=== PATIENT | female | born 2000 | race Caucasian/White ===

== ENCOUNTER 2023-10-23 11:37 | Emergency (ER) | payer SELFPAY ==
[2023-10-23] VITALS (15 sets, daily range): BP systolic 106–119; BP diastolic 60–73; PULSE 96–153; RESP 18–31; TEMP 38.3; O2SAT 96–100; BMI 29.5
--- NOTE | 2023-10-23 12:17 | ED.ABDPAIN ---
HPI - Abdominal Pain General Chief Complaint: Urogenital-Female Stated Complaint: pain when urinating, chills Time Seen by Provider: 10/23/23 11:52 Source: patient Mode of arrival: Ambulatory History of Present Illness HPI narrative: Patient 23-year-old male to female transgender uses pronouns she/her, presenting today with generally not feeling well joint pain aches and pains along with painful frequent urination. She reports painful frequent urination along with penile discharge. Reports being sexually active a few months ago no concern for STDs. Minimal abdominal pain no nausea or vomiting. She is febrile with a temperature of 101? and tachycardic. Denies any sore throat cough or other symptoms. No rashes or severe joint pain. Related Data Previous Rx's Medication Instructions Recorded cefdinir 300 mg capsule 300 mg PO Q12H #20 caps 10/23/23 Allergies Allergy/AdvReac Type Severity Reaction Status Date / Time No Known Drug Allergies Allergy Verified 10/23/23 11:40 Patient History Social History Smoking Status: Never smoker Smoking Status: Never smoker Substance Use Type: does not use Exam Initial Vital Signs Initial Vital Signs: Vital Signs Temperature 101.0 F H 10/23/23 11:41 Pulse Rate 153 H 10/23/23 11:41 Respiratory Rate 24 10/23/23 11:41 Blood Pressure 116/68 10/23/23 11:41 Pulse Oximetry 100 10/23/23 11:41 Oxygen Delivery Method Room Air 10/23/23 11:41 GENERAL: Weak alert HEENT: Head atraumatic,EOMI, pupils reactive, face symmetric, moist mucous membranes CARDIOVASCULAR: Tachycardic no murmurs RESPIRATORY: Breath sounds equal bilaterally, no wheezes rales or rhonchi. ABDOMEN: Soft, nontender. Normoactive bowel sounds all 4 quadrants. No guarding or rebound. : No CVA tenderness EXTREMITIES: Normal range of motion, no clubbing or edema. Neurovascularly intact NEUROLOGICAL: Alert and oriented x4.Normal gait and speech. SKIN: Warm, dry, no laceration, no petechiae, no rashes or lesions. No petechiae no erythema no vesicles Course Orders Ordered: ED Orders 10/23/23 11:57 EKG-12 Lead Stat 10/23/23 12:10 CBC Auto Diff [Complete Blood Count AUTO DIFF] Stat CMP [Comprehensive Metabolic Panel] Stat Lactate (Lactic Acid) Stat Troponin & CK Cardiac Panel Stat 10/23/23 12:28 Blood Culture Stat 10/23/23 12:40 Chlamydia Gonorrhea PCR -URINE Stat UA Complete [Urinalysis and Microscopic] Stat Urine Culture Stat 10/23/23 13:34 CT abdomen pelvis w con Stat Discontinued Medications Sodium Chloride (Normal Saline 0.9%) 3,129.78 mls @ 1,043.26 mls/hr 30 ml/kg infuse over 3 hr (3129.78 ml) IV NOW ONE Stop: 10/23/23 14:51 Last Infusion: 10/23/23 16:33 Dose: Infused Documented By: Admin: 10/23/23 12:33 Dose: 1,043.26 mls/hr Documented By: BRYON Ceftriaxone Sodium 1,000 mg/ (Sodium Chloride) 100 mls @ 200 mls/hr IV NOW ONE Stop: 10/23/23 11:53 Last Infusion: 10/23/23 13:30 Dose: Infused Documented By: Infusion: 10/23/23 13:02 Dose: 200 mls/hr Documented By: Admin: 10/23/23 12:30 Dose: 200 mls/hr Documented By: BRYON Ketorolac Tromethamine (Ketorolac 30 Mg/Ml Vial) 15 mg IV NOW ONE Stop: 10/23/23 11:53 Last Admin: 10/23/23 12:30 Dose: 15 mg Documented By: BRYON Ondansetron HCl (Ondansetron 4 Mg/2 Ml Inj) 4 mg IV NOW PRN PRN Reason: Nausea And Vomiting Last Admin: 10/23/23 12:30 Dose: 4 mg Documented By: BRYON Vital Signs Vital signs: Vital Signs - 8 hr 10/23/23 11:41 10/23/23 11:50 10/23/23 12:00 Temperature 101.0 F H Pulse Rate 153 H 135 H 140 H Respiratory Rate 24 Blood Pressure 116/68 Pulse Oximetry 100 100 99 Oxygen Delivery Method Room Air 10/23/23 12:01 10/23/23 12:01 10/23/23 12:30 Temperature Pulse Rate 141 H 141 H Respiratory Rate 25 H 27 H Blood Pressure 117/73 Pulse Oximetry 99 Oxygen Delivery Method 10/23/23 12:39 10/23/23 12:39 10/23/23 13:00 Temperature Pulse Rate 145 H Respiratory Rate 27 H Blood Pressure 112/69 116/69 Pulse Oximetry 100 Oxygen Delivery Method 10/23/23 13:00 10/23/23 13:30 10/23/23 13:30 Temperature Pulse Rate 134 H 115 H Respiratory Rate 27 H 18 Blood Pressure 111/66 Pulse Oximetry 97 97 Oxygen Delivery Method Room Air 10/23/23 14:00 10/23/23 14:00 10/23/23 14:26 Temperature Pulse Rate 108 H 104 H Respiratory Rate 27 H 25 H Blood Pressure 106/60 Pulse Oximetry 96 99 Oxygen Delivery Method Room Air 10/23/23 14:26 10/23/23 14:30 10/23/23 14:47 Temperature Pulse Rate 113 H Respiratory Rate Blood Pressure 109/65 114/72 Pulse Oximetry 98 Oxygen Delivery Method Room Air 10/23/23 14:47 10/23/23 15:00 10/23/23 15:00 Temperature Pulse Rate 112 H 106 H Respiratory Rate 31 H 18 Blood Pressure 115/70 Pulse Oximetry 99 99 Oxygen Delivery Method Room Air 10/23/23 15:30 10/23/23 15:30 10/23/23 16:00 Temperature Pulse Rate 97 H Respiratory Rate 25 H Blood Pressure 119/66 107/66 Pulse Oximetry 99 Oxygen Delivery Method Room Air 10/23/23 16:00 Temperature Pulse Rate 96 H Respiratory Rate 23 Blood Pressure Pulse Oximetry 99 Oxygen Delivery Method MDM - Abdominal Pain Lab Data 10/23/23 12:10 10/23/23 12:10 Labs: Lab Results 10/23/23 10/23/23 10/23/23 Range/Units 12:10 12:40 14:25 WBC 10.6 (4.5-11.0) X10^3/uL RBC 4.44 (4.0-5.2) X10^6/uL Hgb 13.5 (12.0-16.0) g/dL Hct 40.3 (36-46) % MCV 90.7 (80-100) fL MCH 30.5 (26-34) PG MCHC 33.6 (30-36) % RDW 13.0 (11.6-14.8) % Plt Count 254 (150-400) X10^3/uL Neut % (Auto) 93.2 H (50-75) % Lymph % (Auto) 4.6 L (25-40) % [place] % (Auto) 1.8 L (3-14) % Eos % (Auto) 0.1 L (2-4) % Baso % (Auto) 0.3 (0-2) % Neut # (Auto) 9900 H (8714-5055) /uL Lymph # (Auto) 500 L (5408-5358) /uL [place] # (Auto) 200 (0-900) /uL Eos # (Auto) 0 (0-450) /uL Baso # (Auto) 0 (0-100) /uL Sodium 139 (137-145) mmol/L Potassium 3.8 (3.4-5.1) mmol/L Chloride 108 H (98-107) mmol/L Carbon Dioxide 21 L (22-32) mmol/L BUN 10 (7-17) mg/dL Creatinine 0.50 L (0.52-1.04) mg/dL Estimated GFR > 60 (>60) mL/min BUN/Creatinine Ratio 20.0 (6-22) Glucose 104 H (70-100) mg/dL Lactate 2.6 H 0.8 (0.7-2.1) mmol/L Calcium 9.4 (8.4-10.2) mg/dL Total Bilirubin 0.9 (0.2-1.3) mg/dL AST 21 (14-36) IU/L ALT 23 (<35) IU/L Alkaline Phosphatase 70 (38-126) U/L Total Creatine Kinase 28 L (30-135) U/L Troponin I < 0.012 (0.01-0.034) ng/mL Total Protein 7.9 (6.3-8.2) g/dL Albumin 4.4 (3.5-5.0) g/dL Globulin 3.5 (1.7-4.1) g/dL Albumin/Globulin Ratio 1.3 (1.0-2.8) Urine Color Yellow Urine Appearance Cloudy Urine pH 6.0 (4.5-8.0) Ur Specific [place] 1.025 (1.000-1.035) Urine Protein Negative (Negative) Urine Glucose (UA) Negative (Negative) g/dL Urine Ketones Negative (NEGATIVE) Urine Occult Blood Trace-intact (Negative) Urine Nitrate Negative (Negative) Urine Bilirubin Negative (NEGATIVE) Urine Urobilinogen 0.2 (0.2) E.U./dL Ur Leukocyte Esterase 2+ H (NEGATIVE) Urine RBC 0-1/hpf (0-5/HPF) Urine WBC 30-100/hpf H (0-5/HPF) Ur Squamous Epith Cells 1-5 /hpf (0-5/HPF) Urine Bacteria Many (>30) H (None) Ur Culture Indicated? Specimen cultured Vol Urine Centrifuged 10ml (spun) Ur Chlamydia DNA (PCR) Not detected N gonorrhoeae DNA (PCR) Not detected Imaging Data CT scan - abdomen/pelvis: Radiologist's Impression: PROCEDURE: CT ABDOMEN PELVIS W CON INDICATIONS: sepsis uti TECHNIQUE: After the administration of intravenous contrast, axial sections acquired from the lung bases to the pubic symphysis. Coronal and sagittal reformats were performed. For radiation dose reduction, the following was used: automated exposure control, adjustment of mA and/or kV according to patient size. COMPARISON: None. FINDINGS: Image quality: Diagnostic. Lower Chest: No significant findings. ABDOMEN: Liver: No solid mass. Gallbladder: No radiopaque gallstones or wall thickening. Biliary ducts: No biliary dilation. Pancreas: No ductal dilation. Spleen: Borderline splenomegaly. Spleen measures 13.1 cm. Adrenal Glands: No adrenal nodules. Kidneys and Ureters: No hydronephrosis. No solid mass. No complex renal cystic lesion which requires follow up. Stomach and Bowel: Normal colonic caliber, without significant wall thickening. Peritoneum: No abnormal intraperitoneal fluid. No free air. Ventral Wall: No significant ventral hernia. Abdominal Nodes: No retroperitoneal or mesenteric adenopathy by size criteria. Vessels: Aorta and inferior vena cava are normal in size. PELVIS: Pelvic Organs: Unremarkable. Bladder: Very mild diffuse bladder wall thickening. No air within the bladder.. Pelvic Nodes: No enlarged lymph nodes. Miscellaneous: No inguinal hernias are seen. Bilateral nondistended testicles, both in the inguinal canals. Bones: No aggressive osseous abnormality. Diffuse disc bulge at L4-L5 with mild canal stenosis. IMPRESSION: 1. Mild diffuse bladder wall thickening, nonspecific. It may potentially be secondary to bacterial cystitis. 2. Bilateral non descended testicles, in the inguinal canals. 3. Borderline splenomegaly. Dictated by: Foster Melgar M.D. on 10/23/2023 at 15:00 ECG Data Attestation: I personally reviewed and interpreted this ECG as follows: Interpretation: Sinus tachycardia rate 135 MS interval 144 QRS [address] changes MDM Narrative Medical decision making narrative: MDM CC: Painful frequent urination Complicating co-morbidities: Transgender no surgeries Corroborating data: [ ] Data collected from: [ ] Medical records reviewed: No, unavailable Differential considered: Sepsis, UTI, pyelo, STD viral, Exam documented above, pertinent findings include: Tachycardic no lymphadenopathy, no significant groin pain Lab Test results independently reviewed as above. Pertinent findings: WBC 10.6, creatinine 0.5, lactate 2.6 with repeat 0.8, urinalysis many bacteria +2 leukocytes, negative chlamydia and gonorrhea Independently reviewed EKG as above sinus tachycardia Imaging studies independently reviewed: Diffuse bladder wall thickening possible bacterial cystitis bilateral nondistended testicles and inguinal canal. Patient reports that it is purely positional that testes descend upon standing Consultations: Dr. Beverly in the ED to see and evaluate patient. Recommend that patient can go home with p.o. antibiotic Treatments: Sepsis fluids Toradol Rocephin Re-evaluations: Tachycardia improved overall appears better Discussion: Patient did meet sepsis criteria however young healthy with no significant factors. Patient not having any specific testicular pain but did have some penile discharge STD test negative. Dr. Lam in an ED to see and evaluate patient. Recommends that patient can go home with cefdinir. Patient understands and agrees with this plan. She overall looks improved. She has no leukocytosis lactate has improved with IV fluids. She was given a dose of Rocephin. She is given strict return precautions Discharge Plan Departure Patient Disposition: Home Clinical Impression: Pyelonephritis Instructions: DI for Kidney Infection Activity Restrictions/Additional Instructions: *You have been diagnosed with kidney infection *What to do: At this time go home and please drink plenty of fluid may eat as tolerated. *Continue to take medications as directed Cefdinir 300 mg twice a day for 10 days Tylenol Motrin as needed for pain and fever *Follow up with your primary care provider in 2-3 days or call [phone] *Return to ER if you should have increasing confusion persistent vomiting not tolerating fluids or any new, worsening or concerning symptoms Prescriptions: New cefdinir 300 mg capsule 300 mg PO Q12H Qty: 20 0RF Stand Alone Forms: Patient Portal/API
[2023-10-23 12:25] LABS: Add Manual Diff / Slide Review NO; Basophils Absolute Auto 0 /uL (0-100); Basophils Percent Auto 0.3 % (0-2); Eosinophils Absolute Auto 0 /uL (0-450); Eosinophils Percent Auto 0.1 % (2-4); Hematocrit 40.3 % (36-46); Hemoglobin 13.5 g/dL (12.0-16.0); Lymphocytes Absolute Auto 500 /uL (1100-4500); Lymphocytes Percent Auto 4.6 % (25-40); Mean Corpuscular HGB Conc 33.6 % (30-36); Mean Corpuscular Hemoglobin 30.5 PG (26-34); Mean Corpuscular Volume 90.7 fL (80-100); Monocytes Absolute Auto 200 /uL (0-900); Monocytes Percent Auto 1.8 % (3-14); Neutrophils Absolute Auto 9900 /uL (1500-7000); Neutrophils Percent Auto 93.2 % (50-75); Platelet Count 254 X10^3/uL (150-400); Red Blood Cell Count 4.44 X10^6/uL (4.0-5.2); White Blood Cell Count 10.6 X10^3/uL (4.5-11.0)
[2023-10-23] MEDS: cefTRIAXone 1,000 MG in SODIUM CHLORIDE 0.9% 100 ML 200 MG IV (12:30)
[2023-10-23] MEDS: KETOROLAC 30 MG/ML VIAL 15 MG IV (12:30)
[2023-10-23] MEDS: ONDANSETRON 4 MG/2 ML INJ IV (12:30)
[2023-10-23] MEDS: SODIUM CHLORIDE 0.9% 3,129.78 ML 1043.26 ML IV (12:33)
[2023-10-23 12:46] LABS: Alanine Aminotransferase 23 IU/L (<35); Albumin 4.4 g/dL (3.5-5.0); Albumin Globulin Ratio 1.3 (1.0-2.8); Alkaline Phosphatase 70 U/L (38-126); Aspartate Aminotransferase 21 IU/L (14-36); Bilirubin Total 0.9 mg/dL (0.2-1.3); Blood Urea Nitrogen 10 mg/dL (7-17); Calcium 9.4 mg/dL (8.4-10.2); Carbon Dioxide 21 mmol/L (22-32); Chloride 108 mmol/L (98-107); Creatine Kinase 28 U/L (30-135); Estimated Glomerular Filt Rate > 60 mL/min (>60); Globulin 3.5 g/dL (1.7-4.1); Glucose 104 mg/dL (70-100); HEMOLYSIS < 15 (0-50); Lactate (Lactic Acid) 2.6 mmol/L (0.7-2.1); Potassium 3.8 mmol/L (3.4-5.1); Sodium 139 mmol/L (137-145); Total Protein 7.9 g/dL (6.3-8.2)
[2023-10-23 12:56] LABS: Bilirubin Urine UA NEGATIVE (NEGATIVE); Color Urine UA YELLOW; Glucose Urine UA NEGATIVE (Negative); Ketones Urine UA NEGATIVE (NEGATIVE); Leukocyte Esterase Urine UA 2+ (NEGATIVE); Nitrite Urine UA NEGATIVE (Negative); Occult Blood Urine UA TRACE-INTACT (Negative); Protein Urine UA NEGATIVE (Negative); Specific Gravity Urine UA 1.025 (1.000-1.035); Urobilinogen Urine UA 0.2 E.U./dL (0.2)
[2023-10-23 12:56] LABS: Troponin I < 0.012 ng/mL (0.01-0.034)
--- NOTE | 2023-10-23 13:08 | PC.NURSE ---
PT reports frequent/constant UTI's, confusion, dizziness, lightheaded, generalized pain, white-thick vaginal discharge, burning with urination which worsened the past month. Pt states she get's UTI medications, macrobid online to take when I have symptoms. Pt educated on antibiotic usage. PT laying in bed with quiet music playing on her phone.
[2023-10-23 13:09] LABS: Appearance Urine UA CLOUDY
[2023-10-23 13:11] LABS: Bacteria Urine Many (>30); Culture Indicated Urine Specimen Cultured; RBC Urine 0-1/HPF (0-5/HPF); Squamous Epithelial Cell Urine 1-5 /HPF (0-5/HPF); Urine Volume 10mL (spun); WBC Urine 30-100/HPF (0-5/HPF)
--- NOTE | 2023-10-23 13:34 | DI.CT.S_ITS ---
PROCEDURE: CT ABDOMEN PELVIS W CON INDICATIONS: sepsis uti TECHNIQUE: After the administration of intravenous contrast, axial sections acquired from the lung bases to the pubic symphysis. Coronal and sagittal reformats were performed. For radiation dose reduction, the following was used: automated exposure control, adjustment of mA and/or kV according to patient size. COMPARISON: None. FINDINGS: Image quality: Diagnostic. Lower Chest: No significant findings. ABDOMEN: Liver: No solid mass. Gallbladder: No radiopaque gallstones or wall thickening. Biliary ducts: No biliary dilation. Pancreas: No ductal dilation. Spleen: Borderline splenomegaly. Spleen measures 13.1 cm. Adrenal Glands: No adrenal nodules. Kidneys and Ureters: No hydronephrosis. No solid mass. No complex renal cystic lesion which requires follow up. Stomach and Bowel: Normal colonic caliber, without significant wall thickening. Peritoneum: No abnormal intraperitoneal fluid. No free air. Ventral Wall: No significant ventral hernia. Abdominal Nodes: No retroperitoneal or mesenteric adenopathy by size criteria. Vessels: Aorta and inferior vena cava are normal in size. PELVIS: Pelvic Organs: Unremarkable. Bladder: Very mild diffuse bladder wall thickening. No air within the bladder.. Pelvic Nodes: No enlarged lymph nodes. Miscellaneous: No inguinal hernias are seen. Bilateral nondistended testicles, both in the inguinal canals. Bones: No aggressive osseous abnormality. Diffuse disc bulge at L4-L5 with mild canal stenosis. IMPRESSION: 1. Mild diffuse bladder wall thickening, nonspecific. It may potentially be secondary to bacterial cystitis. 2. Bilateral non descended testicles, in the inguinal canals. 3. Borderline splenomegaly. Dictated by: Foster Melgar M.D. on 10/23/2023 at 15:00 Approved by: Foster Melgar M.D. on 10/23/2023 at 15:04
[2023-10-23 13:57] LABS: Reflexed Lactate in 2 Hours Y
[2023-10-23 14:21] LABS: Urine N gonorrhoeae NOT DETECTED
[2023-10-23 14:24] LABS: Urine Chlamydia NOT DETECTED
[2023-10-23 14:50] LABS: Lactate 2HR (Lactic Acid Rflx) 0.8 mmol/L (0.7-2.1)
--- NOTE | 2023-10-23 16:00 | PM.CN ---
History of Present Illness Consult details Date Patient Seen: 10/23/23 Time Patient Seen: 16:00 Chief complaint: pain when urinating, chills Reason for consult: Pyelonephritis Narrative: 23 F who presented with dysuria, urinary frequency and some R flank pain since this AM. Has had on / off symptoms of burning and frequency and previous UTIs. No recent sexual activity in the past few months, no concerns for STIs that she is aware of. Denies groin swelling, leg swelling. Subjective fever this morning. Some nausea but no vomiting. Feels improved after ER treatments. Did have some pyuria, improved with urination in the ER. Vitals with mild tachycardia, improved with fluids. Fever 101. UA positive and reflexed for culture. I discussed the risks and benefits of admission or discharge home given improving vital signs and improvement clinically. After discussion, patient elected for discharge home from the ER. Meds Home Medications and Allergies Home Medications Medication Instructions Recorded Confirmed Type cefdinir 300 mg capsule 300 mg PO Q12H #20 caps 10/23/23 Rx Allergies Allergy/AdvReac Type Severity Reaction Status Date / Time No Known Drug Allergies Allergy Verified 10/23/23 11:40 Review of Systems Review of Systems Narrative: All other systems reviewed with the patient and are negative unless otherwise stated. Exam Vital Signs (past 8 hours): - 10/23/23 11:41 10/23/23 11:50 10/23/23 12:00 Temperature 101.0 F H Pulse Rate 153 H 135 H 140 H Respiratory Rate 24 Blood Pressure 116/68 Pulse Oximetry 100 100 99 Oxygen Delivery Method Room Air 10/23/23 12:01 10/23/23 12:01 10/23/23 12:30 Temperature Pulse Rate 141 H 141 H Respiratory Rate 25 H 27 H Blood Pressure 117/73 Pulse Oximetry 99 Oxygen Delivery Method 10/23/23 12:39 10/23/23 12:39 10/23/23 13:00 Temperature Pulse Rate 145 H Respiratory Rate 27 H Blood Pressure 112/69 116/69 Pulse Oximetry 100 Oxygen Delivery Method 10/23/23 13:00 10/23/23 13:30 10/23/23 13:30 Temperature Pulse Rate 134 H 115 H Respiratory Rate 27 H 18 Blood Pressure 111/66 Pulse Oximetry 97 97 Oxygen Delivery Method Room Air 10/23/23 14:00 10/23/23 14:00 10/23/23 14:26 Temperature Pulse Rate 108 H 104 H Respiratory Rate 27 H 25 H Blood Pressure 106/60 Pulse Oximetry 96 99 Oxygen Delivery Method Room Air 10/23/23 14:26 10/23/23 14:30 10/23/23 14:47 Temperature Pulse Rate 113 H Respiratory Rate Blood Pressure 109/65 114/72 Pulse Oximetry 98 Oxygen Delivery Method Room Air 10/23/23 14:47 10/23/23 15:00 10/23/23 15:00 Temperature Pulse Rate 112 H 106 H Respiratory Rate 31 H 18 Blood Pressure 115/70 Pulse Oximetry 99 99 Oxygen Delivery Method Room Air 10/23/23 15:30 10/23/23 15:30 Temperature Pulse Rate 97 H Respiratory Rate 25 H Blood Pressure 119/66 Pulse Oximetry 99 Oxygen Delivery Method Room Air Oxygen Delivery Method Room Air Narrative Exam Narrative: Gen: WDWN female, no acute distress CV: RRR, slight tachycardia Ext: no edema. Objective Labs 10/23/23 12:10 10/23/23 12:10 Labs: Laboratory Results - last 24 hr 10/23/23 10/23/23 10/23/23 12:10 12:40 14:25 WBC 10.6 RBC 4.44 Hgb 13.5 Hct 40.3 MCV 90.7 MCH 30.5 MCHC 33.6 RDW 13.0 Plt Count 254 Neut % (Auto) 93.2 H Lymph % (Auto) 4.6 L [place] % (Auto) 1.8 L Eos % (Auto) 0.1 L Baso % (Auto) 0.3 Neut # (Auto) 9900 H Lymph # (Auto) 500 L [place] # (Auto) 200 Eos # (Auto) 0 Baso # (Auto) 0 Sodium 139 Potassium 3.8 Chloride 108 H Carbon Dioxide 21 L BUN 10 Creatinine 0.50 L Estimated GFR > 60 BUN/Creatinine Ratio 20.0 Glucose 104 H Lactate 2.6 H 0.8 Calcium 9.4 Total Bilirubin 0.9 AST 21 ALT 23 Alkaline Phosphatase 70 Total Creatine Kinase 28 L Troponin I < 0.012 Total Protein 7.9 Albumin 4.4 Globulin 3.5 Albumin/Globulin Ratio 1.3 Urine Color Yellow Urine Appearance Cloudy Urine pH 6.0 Ur Specific [place] 1.025 Urine Protein Negative Urine Glucose (UA) Negative Urine Ketones Negative Urine Occult Blood Trace-intact Urine Nitrate Negative Urine Bilirubin Negative Urine Urobilinogen 0.2 Ur Leukocyte Esterase 2+ H Urine RBC 0-1/hpf Urine WBC 30-100/hpf H Ur Squamous Epith Cells 1-5 /hpf Urine Bacteria Many (>30) H Ur Culture Indicated? Specimen cultured Vol Urine Centrifuged 10ml (spun) Ur Chlamydia DNA (PCR) Not detected N gonorrhoeae DNA (PCR) Not detected PFSH Tobacco & Substance Use Smoking Status: Never smoker Assessment & Plan Assessment & Plan narrative: 1. Acute cystitis, possible R pyelonephritis - no evidence of end organ damage does have + SIRS criteria. given improving tachycardia and clinical symptoms, patient is safe for discharge home. Discussed risks and benefits of continued observation in the hospital or discharge home, patient elected for discharge home. - Urine GC is negative. - Recommend cefdinir for 10 days for presumptive pyelonephritis. Try to follow up cultures to check if any resistance. - encouraged primary care follow up, patient gets majority of care at [facility]. 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 Discussed possible risks of cryptorchidism, recommended outpatient follow up. - with waxing and waning symptoms, if there is a recurrence after this episode consider fluoroquinolone for treatment of possible prostatitis, though no evidence currently. Code: Full Dispo: discussed risks and benefits of discharge home or continued observation. Patient elected home. Additional history obtained from the ER provider. Reviewed patient's imaging, labs, and documentation personally. I have utilized all available immediate resources to obtain, update, or review the patient's current medications.
[2023-10-24 08:55] LABS: Acinetobacter calcoa-baumannii Not Detected (Not Detect); Bacteroides fragilis Not Detected (Not Detect); Candida albicans Not Detected (Not Detect); Candida auris Not Detected (Not Detect); Candida glabrata Not Detected (Not Detect); Candida krusei Not Detected (Not Detect); Candida parapsilosis Not Detected (Not Detect); Candida tropicalis Not Detected (Not Detect); Cryptococcus neoformans/gatti Not Detected (Not Detect); Enterobacter cloacae complex Not Detected (Not Detect); Enterobacterales Not Detected (Not Detect); Enterococcus faecalis Not Detected (Not Detect); Enterococcus faecium Not Detected (Not Detect); Haemophilus influenzae Not Detected (Not Detect); Klebsiella aerogenes Not Detected (Not Detect); Listeria monocytogenes Not Detected (Not Detect); Neisseria meningitidis Not Detected (Not Detect); Proteus species Not Detected (Not Detect); Pseudomonas aeruginosa Not Detected (Not Detect); Salmonella species Not Detected (Not Detect); Serratia marcescens Not Detected (Not Detect); Staphylococcus epidermidis Not Detected (Not Detect); Staphylococcus lugdunensis Not Detected (Not Detect); Staphylococcus species Not Detected (Not Detect); Stenotrophomonas maltophilia Not Detected (Not Detect); Streptococcus agalactiae (Gr B Detected (Not Detect); Streptococcus pneumonia Not Detected (Not Detect); Streptococcus pyogenes (Gr A) Not Detected (Not Detect); Streptococcus species Detected (Not Detect)
--- NOTE | 2023-10-24 10:16 | ED_ITS ---
HPI - General Adult General Chief complaint: Urogenital-Female Stated complaint: pain when urinating, chills Time Seen by Provider: 10/23/23 11:52 Source: patient Mode of arrival: Ambulatory History of Present Illness HPI narrative: 23-year-old male to female transgender uses pronouns she/her asked to return after 2 positive blood cultures patient was discharged home yesterday on cefdinir for pyelonephritis with frequent painful urination along with penile discharge. Patient was febrile yesterday with a temperature of 101? and tachycardic, today is afebrile no longer tachycardic states they felt a little bit warm overnight. No abdominal back or flank pain, still has some dysuria, no nausea or vomiting, no chest pain or shortness of breath, no cold or cough symptoms. No issues with bowel movements otherwise. No rash or skin changes. They have been taking cefdinir as prescribed since discharge. Patient has not had any prior surgeries. Is on spironolactone and additional medication normally. No known drug allergies. No tobacco, no IV drugs. Related Data Previous Rx's Medication Instructions Recorded cefdinir 300 mg capsule 300 mg PO Q12H #20 caps 10/23/23 Allergies Allergy/AdvReac Type Severity Reaction Status Date / Time No Known Drug Allergies Allergy Verified 10/24/23 10:18 Review of Systems Review of Systems ROS Unobtainable: All systems reviewed & are unremarkable except as noted in HPI and below Patient History Social History Smoking Status: Never smoker Smoking Status: Never smoker Substance Use Type: does not use Exam Narrative Exam Narrative: GENERAL: Alert and oriented x three, well-appearing without any distress. HEENT: Head normocephalic, atraumatic, EOMI, pupils reactive, face symmetric, moist mucous membranes NECK: Supple, full range of motion CARDIOVASCULAR: Regular rate and rhythm without murmurs, rubs or gallops. RESPIRATORY: Breath sounds equal bilaterally, no wheezes rales or rhonchi. ABDOMEN: Soft, nontender. Normoactive bowel sounds all 4 quadrants. No guarding or rebound, rigidity, no mass : No CVA tenderness EXTREMITIES: Normal range of motion, no clubbing or edema. Neurovascularly intact NEUROLOGICAL: Cranial nerves II through XII grossly intact. Moving all extremities SKIN: Warm, dry, no petechiae, no rashes or lesions. Initial Vital Signs Initial Vital Signs: Vital Signs Temperature 101.0 F H 10/23/23 11:41 Pulse Rate 153 H 10/23/23 11:41 Respiratory Rate 24 10/23/23 11:41 Blood Pressure 116/68 10/23/23 11:41 Pulse Oximetry 100 10/23/23 11:41 Oxygen Delivery Method Room Air 10/23/23 11:41 Course Orders Ordered: Discontinued Medications Sodium Chloride (Normal Saline 0.9%) 3,129.78 mls @ 1,043.26 mls/hr 30 ml/kg infuse over 3 hr (3129.78 ml) IV NOW ONE Stop: 10/23/23 14:51 Last Infusion: 10/23/23 16:33 Dose: Infused Documented By: Admin: 10/23/23 12:33 Dose: 1,043.26 mls/hr Documented By: BRYON Ceftriaxone Sodium 1,000 mg/ (Sodium Chloride) 100 mls @ 200 mls/hr IV NOW ONE Stop: 10/23/23 11:53 Last Infusion: 10/23/23 13:30 Dose: Infused Documented By: Infusion: 10/23/23 13:02 Dose: 200 mls/hr Documented By: Admin: 10/23/23 12:30 Dose: 200 mls/hr Documented By: BRYON Ketorolac Tromethamine (Ketorolac 30 Mg/Ml Vial) 15 mg IV NOW ONE Stop: 10/23/23 11:53 Last Admin: 10/23/23 12:30 Dose: 15 mg Documented By: BRYON Ondansetron HCl (Ondansetron 4 Mg/2 Ml Inj) 4 mg IV NOW PRN PRN Reason: Nausea And Vomiting Last Admin: 10/23/23 12:30 Dose: 4 mg Documented By: BRYON Medical Decision Making Lab Data 10/24/23 10:20 10/24/23 10:20 Labs: Lab Results 10/23/23 10/23/23 10/23/23 Range/Units 12:10 12:40 14:25 WBC 10.6 (4.5-11.0) X10^3/uL RBC 4.44 (4.0-5.2) X10^6/uL Hgb 13.5 (12.0-16.0) g/dL Hct 40.3 (36-46) % MCV 90.7 (80-100) fL MCH 30.5 (26-34) PG MCHC 33.6 (30-36) % RDW 13.0 (11.6-14.8) % Plt Count 254 (150-400) X10^3/uL Neut % (Auto) 93.2 H (50-75) % Lymph % (Auto) 4.6 L (25-40) % [place] % (Auto) 1.8 L (3-14) % Eos % (Auto) 0.1 L (2-4) % Baso % (Auto) 0.3 (0-2) % Neut # (Auto) 9900 H (5176-3950) /uL Lymph # (Auto) 500 L (3912-9749) /uL [place] # (Auto) 200 (0-900) /uL Eos # (Auto) 0 (0-450) /uL Baso # (Auto) 0 (0-100) /uL Sodium 139 (137-145) mmol/L Potassium 3.8 (3.4-5.1) mmol/L Chloride 108 H (98-107) mmol/L Carbon Dioxide 21 L (22-32) mmol/L BUN 10 (7-17) mg/dL Creatinine 0.50 L (0.52-1.04) mg/dL Estimated GFR > 60 (>60) mL/min BUN/Creatinine Ratio 20.0 (6-22) Glucose 104 H (70-100) mg/dL Lactate 2.6 H 0.8 (0.7-2.1) mmol/L Calcium 9.4 (8.4-10.2) mg/dL Total Bilirubin 0.9 (0.2-1.3) mg/dL AST 21 (14-36) IU/L ALT 23 (<35) IU/L Alkaline Phosphatase 70 (38-126) U/L Total Creatine Kinase 28 L (30-135) U/L Troponin I < 0.012 (0.01-0.034) ng/mL Total Protein 7.9 (6.3-8.2) g/dL Albumin 4.4 (3.5-5.0) g/dL Globulin 3.5 (1.7-4.1) g/dL Albumin/Globulin Ratio 1.3 (1.0-2.8) Lipase (23-300) U/L Procalcitonin (<0.5) ng/mL Urine Color Yellow Urine Appearance Cloudy Urine pH 6.0 (4.5-8.0) Ur Specific [place] 1.025 (1.000-1.035) Urine Protein Negative (Negative) Urine Glucose (UA) Negative (Negative) g/dL Urine Ketones Negative (NEGATIVE) Urine Occult Blood Trace-intact (Negative) Urine Nitrate Negative (Negative) Urine Bilirubin Negative (NEGATIVE) Urine Urobilinogen 0.2 (0.2) E.U./dL Ur Leukocyte Esterase 2+ H (NEGATIVE) Urine RBC 0-1/hpf (0-5/HPF) Urine WBC 30-100/hpf H (0-5/HPF) Ur Squamous Epith Cells 1-5 /hpf (0-5/HPF) Urine Bacteria Many (>30) H (None) Ur Culture Indicated? Specimen cultured Vol Urine Centrifuged 10ml (spun) A.calcoaceticus-baumannii cmplx PCR Not detected (Not Detect) Bacteroides fragilis Not detected (Not Detect) Sara albicans (PCR) Not detected (Not Detect) Sara auris (PCR) Not detected (Not Detect) C. glabrata (PCR) Not detected (Not Detect) C. krusei (PCR) Not detected (Not Detect) C. parapsilosis (PCR) Not detected (Not Detect) C. tropicalis (PCR) Not detected (Not Detect) Ur Chlamydia DNA (PCR) Not detected C. neoform/gattii (PCR) Not detected (Not Detect) Enterobacterales (PCR) Not detected (Not Detect) E. cloacae complex PCR Not detected (Not Detect) Enterococc faecalis PCR Not detected (Not Detect) Enterococc faecium PCR Not detected (Not Detect) E. coli (PCR) Not detected (Not Detect) H. influenzae (PCR) Not detected (Not Detect) Klebsiella aerogenes (PCR) Not detected (Not Detect) Klebsiella oxytoca PCR Not detected (Not Detect) Klebsiella pneumoniae Not detected (Not Detect) List. monocytogenes PCR Not detected (Not Detect) N. meningitidis (PCR) Not detected (Not Detect) Proteus species (PCR) Not detected (Not Detect) Salmonella spp. (PCR) Not detected (Not Detect) Serratia marcescens PCR Not detected (Not Detect) Staphylococcus sp PCR Not detected (Not Detect) Staph aureus (PCR) Not detected (Not Detect) mecA/C & MREJ Resist Gene Not applicable (Not Detect) mecA/C-Methicil Resis Gene Not applicable (Not Detect) mcr-1 Colistin Res Gene PCR Not applicable (Not Detect) Staph epidermidis (PCR) Not detected (Not Detect) Staph lugdunensis PCR Not detected (Not Detect) S. maltophilia (PCR) Not detected (Not Detect) Streptococcus sp PCR Detected (Not Detect) Group A Strep (PCR) Not detected (Not Detect) Strep agalactiae (PCR) Detected (Not Detect) Strep pneumoniae (PCR) Not detected (Not Detect) P. aeruginosa (PCR) Not detected (Not Detect) Sheng/B-Vanco Res Genes Not applicable (Not Detect) blaIMP Car res Gene PCR Not applicable (Not Detect) KPC-Carbap Res Gene PCR Not applicable (Not Detect) blaNDM Car Res Gene PCR Not applicable (Not Detect) OXA-48 Carbapenem Resis Gene (PCR) Not applicable (Not Detect) blaVIM Car Res Gene PCR Not applicable (Not Detect) CTX-M Gene Resistance (PCR) Not applicable (Not Detect) N gonorrhoeae DNA (PCR) Not detected 10/24/23 10/24/23 Range/Units 10:20 12:40 WBC 9.5 (4.5-11.0) X10^3/uL RBC 4.50 (4.0-5.2) X10^6/uL Hgb 13.8 (12.0-16.0) g/dL Hct 40.8 (36-46) % MCV 90.7 (80-100) fL MCH 30.8 (26-34) PG MCHC 33.9 (30-36) % RDW 13.0 (11.6-14.8) % Plt Count 279 (150-400) X10^3/uL Neut % (Auto) 61.7 D (50-75) % Lymph % (Auto) 24.3 L (25-40) % [place] % (Auto) 13.3 (3-14) % Eos % (Auto) 0.5 L (2-4) % Baso % (Auto) 0.2 (0-2) % Neut # (Auto) 5900 (0721-4560) /uL Lymph # (Auto) 2300 (1703-8166) /uL [place] # (Auto) 1300 H (0-900) /uL Eos # (Auto) 0 (0-450) /uL Baso # (Auto) 0 (0-100) /uL Sodium 141 (137-145) mmol/L Potassium 3.6 (3.4-5.1) mmol/L Chloride 106 (98-107) mmol/L Carbon Dioxide 25 (22-32) mmol/L BUN 7 (7-17) mg/dL Creatinine 0.46 L (0.52-1.04) mg/dL Estimated GFR > 60 (>60) mL/min BUN/Creatinine Ratio 15.2 (6-22) Glucose 112 H (70-100) mg/dL Lactate 2.4 H 0.7 (0.7-2.1) mmol/L Calcium 9.8 (8.4-10.2) mg/dL Total Bilirubin 1.0 (0.2-1.3) mg/dL AST 20 (14-36) IU/L ALT 23 (<35) IU/L Alkaline Phosphatase 67 (38-126) U/L Total Creatine Kinase (30-135) U/L Troponin I (0.01-0.034) ng/mL Total Protein 8.2 (6.3-8.2) g/dL Albumin 4.9 (3.5-5.0) g/dL Globulin 3.3 (1.7-4.1) g/dL Albumin/Globulin Ratio 1.5 (1.0-2.8) Lipase 51 (23-300) U/L Procalcitonin 6.75 H (<0.5) ng/mL Urine Color Urine Appearance Urine pH (4.5-8.0) Ur Specific [place] (1.000-1.035) Urine Protein (Negative) Urine Glucose (UA) (Negative) g/dL Urine Ketones (NEGATIVE) Urine Occult Blood (Negative) Urine Nitrate (Negative) Urine Bilirubin (NEGATIVE) Urine Urobilinogen (0.2) E.U./dL Ur Leukocyte Esterase (NEGATIVE) Urine RBC (0-5/HPF) Urine WBC (0-5/HPF) Ur Squamous Epith Cells (0-5/HPF) Urine Bacteria (None) Ur Culture Indicated? Vol Urine Centrifuged A.calcoaceticus-baumannii cmplx PCR (Not Detect) Bacteroides fragilis (Not Detect) Sara albicans (PCR) (Not Detect) Sara auris (PCR) (Not Detect) C. glabrata (PCR) (Not Detect) C. krusei (PCR) (Not Detect) C. parapsilosis (PCR) (Not Detect) C. tropicalis (PCR) (Not Detect) Ur Chlamydia DNA (PCR) C. neoform/gattii (PCR) (Not Detect) Enterobacterales (PCR) (Not Detect) E. cloacae complex PCR (Not Detect) Enterococc faecalis PCR (Not Detect) Enterococc faecium PCR (Not Detect) E. coli (PCR) (Not Detect) H. influenzae (PCR) (Not Detect) Klebsiella aerogenes (PCR) (Not Detect) Klebsiella oxytoca PCR (Not Detect) Klebsiella pneumoniae (Not Detect) List. monocytogenes PCR (Not Detect) N. meningitidis (PCR) (Not Detect) Proteus species (PCR) (Not Detect) Salmonella spp. (PCR) (Not Detect) Serratia marcescens PCR (Not Detect) Staphylococcus sp PCR (Not Detect) Staph aureus (PCR) (Not Detect) mecA/C & MREJ Resist Gene (Not Detect) mecA/C-Methicil Resis Gene (Not Detect) mcr-1 Colistin Res Gene PCR (Not Detect) Staph epidermidis (PCR) (Not Detect) Staph lugdunensis PCR (Not Detect) S. maltophilia (PCR) (Not Detect) Streptococcus sp PCR (Not Detect) Group A Strep (PCR) (Not Detect) Strep agalactiae (PCR) (Not Detect) Strep pneumoniae (PCR) (Not Detect) P. aeruginosa (PCR) (Not Detect) Sheng/B-Vanco Res Genes (Not Detect) blaIMP Car res Gene PCR (Not Detect) KPC-Carbap Res Gene PCR (Not Detect) blaNDM Car Res Gene PCR (Not Detect) OXA-48 Carbapenem Resis Gene (PCR) (Not Detect) blaVIM Car Res Gene PCR (Not Detect) CTX-M Gene Resistance (PCR) (Not Detect) N gonorrhoeae DNA (PCR) MDM Narrative Medical decision making narrative: 23-year-old male to female transgender individual who represents after being contacted for to positive blood cultures, positive urine yesterday with presumed pyelonephritis. Patient feels much improved heart rate today. Discharge Plan Departure Patient Disposition: Home Clinical Impression: Pyelonephritis Instructions: DI for Kidney Infection Activity Restrictions/Additional Instructions: *You have been diagnosed with kidney infection *What to do: At this time go home and please drink plenty of fluid may eat as tolerated. *Continue to take medications as directed Cefdinir 300 mg twice a day for 10 days Tylenol Motrin as needed for pain and fever *Follow up with your primary care provider in 2-3 days or call [phone] *Return to ER if you should have increasing confusion persistent vomiting not tolerating fluids or any new, worsening or concerning symptoms Prescriptions: New cefdinir 300 mg capsule 300 mg PO Q12H Qty: 20 0RF Stand Alone Forms: Patient Portal/API
[2023-10-24 10:35] LABS: Add Manual Diff / Slide Review NO; Basophils Absolute Auto 0 /uL (0-100); Basophils Percent Auto 0.2 % (0-2); Eosinophils Absolute Auto 0 /uL (0-450); Eosinophils Percent Auto 0.5 % (2-4); Hematocrit 40.8 % (36-46); Hemoglobin 13.8 g/dL (12.0-16.0); Lymphocytes Absolute Auto 2300 /uL (1100-4500); Lymphocytes Percent Auto 24.3 % (25-40); Mean Corpuscular HGB Conc 33.9 % (30-36); Mean Corpuscular Hemoglobin 30.8 PG (26-34); Mean Corpuscular Volume 90.7 fL (80-100); Monocytes Absolute Auto 1300 /uL (0-900); Monocytes Percent Auto 13.3 % (3-14); Neutrophils Absolute Auto 5900 /uL (1500-7000); Neutrophils Percent Auto 61.7 % (50-75); Platelet Count 279 X10^3/uL (150-400); White Blood Cell Count 9.5 X10^3/uL (4.5-11.0)
[2023-10-24 10:46] LABS: Alanine Aminotransferase 23 IU/L (<35); Albumin 4.9 g/dL (3.5-5.0); Albumin Globulin Ratio 1.5 (1.0-2.8); Alkaline Phosphatase 67 U/L (38-126); Aspartate Aminotransferase 20 IU/L (14-36); BUN Creatinine Ratio 15.2 (6-22); Blood Urea Nitrogen 7 mg/dL (7-17); Calcium 9.8 mg/dL (8.4-10.2); Carbon Dioxide 25 mmol/L (22-32); Chloride 106 mmol/L (98-107); Estimated Glomerular Filt Rate > 60 mL/min (>60); Globulin 3.3 g/dL (1.7-4.1); Glucose 112 mg/dL (70-100); HEMOLYSIS < 15 (0-50); Lactate (Lactic Acid) 2.4 mmol/L (0.7-2.1); Lipase 51 U/L (23-300); Potassium 3.6 mmol/L (3.4-5.1); Sodium 141 mmol/L (137-145); Total Protein 8.2 g/dL (6.3-8.2)
[2023-10-24 11:02] LABS: Procalcitonin 6.75 ng/mL (<0.5)
[2023-10-24 12:06] LABS: Reflexed Lactate in 2 Hours Y
[2023-10-24 12:59] LABS: Lactate 2HR (Lactic Acid Rflx) 0.7 mmol/L (0.7-2.1)
== END 2023-10-23 16:34 | disposition home or self-care (01) ==
PROVIDERS: Emergency Medicine; Emergency Provider Emergency Medicine
DX: N12 Tubulo-interstitial nephritis, not specified as acute or chronic (principal); R00.0 Tachycardia, unspecified
CPT/HCPCS: 36415; 74177; 80053; 81001; 82550; 83605; 83690; 84145; 84484; 85025; 87040; 87077; 87086; 87147; 87154; 87186; 87205; 87491; 87591; 93005; 93010; 96365; 96375; 99284; J0696; J1885; J2405; Q9967

== ENCOUNTER 2023-10-24 10:11 | Emergency (ER) | payer SELFPAY ==
[2023-10-24] VITALS (11 sets, daily range): BP systolic 109–138; BP diastolic 70–92; PULSE 67–90; RESP 18; TEMP 36.9; O2SAT 98–100; BMI 29.5
--- NOTE | 2023-10-24 10:32 | ED.RECABL ---
HPI - Recheck/Abnormal Lab/Rx General Chief Complaint: Recheck/Abnormal Lab/Rx Stated Complaint: asked to come back in for lab recheck Time Seen by Provider: 10/24/23 10:13 Source: patient Mode of arrival: Ambulatory History of Present Illness HPI narrative: HPI narrative: 23-year-old male to female transgender uses pronouns she/her asked to return after 2 positive blood cultures patient was discharged home yesterday on cefdinir for pyelonephritis with frequent painful urination along with penile discharge. Patient was febrile yesterday with a temperature of 101? and tachycardic, today is afebrile no longer tachycardic states they felt a little bit warm overnight. No abdominal back or flank pain, still has some dysuria, no nausea or vomiting, no chest pain or shortness of breath, no cold or cough symptoms. No issues with bowel movements otherwise. No rash or skin changes. They have been taking cefdinir as prescribed since discharge. Patient has not had any prior surgeries. Is on spironolactone and additional medication normally. No known drug allergies. No tobacco, no IV drugs. Related Data Previous Rx's Medication Instructions Recorded cefdinir 300 mg capsule 300 mg PO Q12H #20 caps 10/23/23 Allergies Allergy/AdvReac Type Severity Reaction Status Date / Time No Known Drug Allergies Allergy Verified 10/24/23 10:18 Review of Systems Review of Systems ROS Unobtainable: All systems reviewed & are unremarkable except as noted in HPI and below Patient History Social History Smoking Status: Never smoker Smoking Status: Never smoker Substance Use Type: does not use Exam Narrative Exam Narrative: Exam Narrative: GENERAL: Alert and oriented x three, well-appearing without any distress. HEENT: Head normocephalic, atraumatic, EOMI, pupils reactive, face symmetric, moist mucous membranes NECK: Supple, full range of motion CARDIOVASCULAR: Regular rate and rhythm without murmurs, rubs or gallops. RESPIRATORY: Breath sounds equal bilaterally, no wheezes rales or rhonchi. ABDOMEN: Soft, nontender. Normoactive bowel sounds all 4 quadrants. No guarding or rebound, rigidity, no mass : No CVA tenderness EXTREMITIES: Normal range of motion, no clubbing or edema. Neurovascularly intact NEUROLOGICAL: Cranial nerves II through XII grossly intact. Moving all extremities SKIN: Warm, dry, no petechiae, no rashes or lesions. Initial Vital Signs Initial Vital Signs: Vital Signs Pulse Rate 87 10/24/23 10:16 Blood Pressure 134/92 H 10/24/23 10:16 Pulse Oximetry 100 10/24/23 10:16 Course Orders Ordered: Discontinued Medications Sodium Chloride (Normal Saline 0.9%) 1,000 mls @ 1,000 mls/hr IV BOLUS ONE Stop: 10/24/23 12:01 Last Infusion: 10/24/23 12:45 Dose: Infused Documented By: Admin: 10/24/23 11:29 Dose: 1,000 mls/hr Documented By: BRYON Vital Signs Vital signs: Vital Signs - 8 hr 10/24/23 10:16 10/24/23 10:16 10/24/23 10:18 Temperature 98.5 F Pulse Rate 87 87 Respiratory Rate 18 Blood Pressure 134/92 H 134/92 H Pulse Oximetry 100 98 Oxygen Delivery Method Room Air 10/24/23 10:28 10/24/23 10:28 10/24/23 10:30 Temperature Pulse Rate 90 86 Respiratory Rate Blood Pressure 138/82 Pulse Oximetry 99 99 Oxygen Delivery Method 10/24/23 11:00 10/24/23 11:30 10/24/23 11:30 Temperature Pulse Rate 79 78 Respiratory Rate Blood Pressure 126/70 Pulse Oximetry 98 99 Oxygen Delivery Method 10/24/23 12:00 10/24/23 12:30 10/24/23 12:42 Temperature Pulse Rate 71 71 Respiratory Rate Blood Pressure 118/77 Pulse Oximetry 100 100 Oxygen Delivery Method 10/24/23 12:42 10/24/23 12:45 10/24/23 12:45 Temperature Pulse Rate 74 76 Respiratory Rate Blood Pressure 111/78 Pulse Oximetry 99 100 Oxygen Delivery Method 10/24/23 13:00 10/24/23 13:00 Temperature Pulse Rate 67 Respiratory Rate Blood Pressure 109/73 Pulse Oximetry 99 Oxygen Delivery Method MDM - Recheck/Abnormal Lab/Rx MDM Narrative Medical decision making narrative: Patient return for recheck after 2/2 positive blood cultures, PCR positive for strep agalactatiae. Urine culture is pending but also positive for Streptococcus group B. Heart rate today is in the 80s blood pressure is 1 30s over 92 afebrile, does not appear toxic or septic currently. Patient is feeling better compared to yesterday. They have cefdinir starting yesterday and today. Patient's labs patient has a normal white count 9.5 was 10.6 on the 12th, hemoglobin 13, platelets are 279, no predominance of neutrophils today did the 12th. Chemistry shows normal chemistry normal electrolytes replenish lactate was 2.4 repeat 0.7 LFTs are otherwise negative procalcitonin is 6.75 patient does not have a prior for comparison. After discussion with the patient they would like to return home continue on oral antibiotics for 10 days total. Patient would like for discharge home. With normal vitals and otherwise fairly normal labs patient is tolerating well and feels improved felt appropriate for discharge home cultures were repeated today and are currently pending. Discharge Plan Departure Patient Disposition: Home Clinical Impression: Pyelonephritis, Bacteremia Activity Restrictions/Additional Instructions: Your blood cultures and urine culture are positive for strep which shows bacteremia. Your labs today appear improved from yesterday, although there are still signs of infection. Your blood cultures were repeated today these typically take 48-72 hours to result if positive you would be re-contacted. Please continue your antibiotics until completed for a total of 10 days. If you have recurrent fevers if you are feeling worse in any time new abdominal back or flank pain, increasing difficulty with urination or painful urination, nausea or vomiting or other new or concerning changes please return. Prescriptions: No Action cefdinir 300 mg capsule 300 mg PO Q12H Qty: 20 0RF Referrals: Miscellaneous,DoctorMD [Primary Care Provider] - Stand Alone Forms: Patient Portal/API
[2023-10-24] MEDS: SODIUM CHLORIDE 0.9% 1,000 ML 1000 ML IV (11:29)
== END 2023-10-24 13:17 | disposition home or self-care (01) ==
PROVIDERS: Emergency Provider Emergency Medicine
DX: N12 Tubulo-interstitial nephritis, not specified as acute or chronic (principal); R78.81 Bacteremia
CPT/HCPCS: 36415; 96360; 99284

== ENCOUNTER 2023-11-15 15:43 | Observation (INO) | payer OTHER, MEDICAID, SELFPAY ==
[2023-11-15 15:52] VITALS: BP 139/76; PULSE 123; RESP 20; TEMP 37.7; O2SAT 98; BMI 28.2
--- NOTE | 2023-11-15 15:52 | ED_ITS ---
HPI - Abdominal Pain General Chief Complaint: Urogenital-Female Stated Complaint: right side kidney px, fever, trbl w concentration Time Seen by Provider: 11/15/23 15:51 History of Present Illness HPI narrative: Patient 23-year-old male female transgender presenting today with right-sided flank pain body aches and fever. She also complains of some painful frequent urination. She was recently seen here October 22 diagnosed with UTI ultimately blood cultures were positive with Gram-positive cocci she was treated as outpatient with cefdinir. She reports that she was better for awhile but then started feeling ill again. Reports of brain fog some mild right flank pain. No abdominal pain or right lower quadrant pain. Related Data Previous Rx's Medication Instructions Recorded cefdinir 300 mg capsule 300 mg PO Q12H #20 caps 10/23/23 Allergies Allergy/AdvReac Type Severity Reaction Status Date / Time No Known Drug Allergies Allergy Verified 11/15/23 16:00 Patient History Social History Smoking Status: Never smoker Smoking Status: Never smoker Substance Use Type: does not use Exam Initial Vital Signs Initial Vital Signs: Vital Signs Temperature 99.9 F H 11/15/23 15:52 Pulse Rate 123 H 11/15/23 15:52 Respiratory Rate 20 11/15/23 15:52 Blood Pressure 139/76 11/15/23 15:52 Pulse Oximetry 98 11/15/23 15:52 Oxygen Delivery Method Room Air 11/15/23 15:52 GENERAL: Alert 24 and in no acute distress. HEENT: Head atraumatic,EOMI, pupils reactive, face symmetric, moist mucous membranes CARDIOVASCULAR: Regular rate and rhythm without murmurs, rubs or gallops. RESPIRATORY: Breath sounds equal bilaterally, no wheezes rales or rhonchi. ABDOMEN: Soft, nontender. Normoactive bowel sounds all 4 quadrants. No guarding or rebound. : Mild right CVA tenderness EXTREMITIES: Normal range of motion, no clubbing or edema. Neurovascularly intact NEUROLOGICAL: Alert and oriented x4.Normal gait and speech. SKIN: Warm, dry, no laceration, no petechiae, no rashes or lesions. Course Orders Ordered: ED Orders 11/15/23 15:50 Complete Blood Count AUTO DIFF Stat Comprehensive Metabolic Panel Stat Lactate (Lactic Acid) Stat Lipase Stat PTT Partial Thromboplastin Doc Stat Procalcitonin Stat Prothrombin Time INR Stat 11/15/23 16:06 XR chest 1V Stat RT Consult Eval and Treat NOW 11/15/23 16:14 Urine Culture Stat Urine Microscopic Stat 11/15/23 16:25 Blood Culture Stat Ondansetron HCl (Ondansetron 4 Mg/2 Ml Inj) 4 mg IV NOW PRN PRN Reason: Nausea And Vomiting Ondansetron HCl (Ondansetron 4 Mg Odt) 4 mg SL NOW PRN PRN Reason: Nausea And Vomiting Discontinued Medications Sodium Chloride (Normal Saline 0.9%) 1,000 mls @ 1,000 mls/hr IV BOLUS ONE Stop: 11/15/23 17:05 Last Infusion: 11/15/23 17:23 Dose: Infused Documented By: Admin: 11/15/23 16:10 Dose: 1,000 mls/hr Documented By: LOIS Ceftriaxone Sodium 1,000 mg/ (Sodium Chloride) 100 mls @ 200 mls/hr IV NOW ONE Stop: 11/15/23 16:34 Last Infusion: 11/15/23 17:24 Dose: Infused Documented By: Admin: 11/15/23 16:50 Dose: 200 mls/hr Documented By: OLIS Vital Signs Vital signs: Vital Signs - 8 hr 11/15/23 15:52 Temperature 99.9 F H Pulse Rate 123 H Respiratory Rate 20 Blood Pressure 139/76 Pulse Oximetry 98 Oxygen Delivery Method Room Air MDM - Abdominal Pain Lab Data 11/15/23 15:50 11/15/23 15:50 Labs: Lab Results 11/15/23 11/15/23 Range/Units 15:50 16:14 WBC 18.6 H (4.5-11.0) X10^3/uL RBC 4.70 (4.0-5.2) X10^6/uL Hgb 14.3 (12.0-16.0) g/dL Hct 42.2 (36-46) % MCV 89.7 (80-100) fL MCH 30.5 (26-34) PG MCHC 34.0 (30-36) % RDW 13.2 (11.6-14.8) % Plt Count 279 (150-400) X10^3/uL Neut % (Auto) 83.4 H (50-75) % Lymph % (Auto) 8.6 L (25-40) % [place] % (Auto) 7.6 (3-14) % Eos % (Auto) 0.0 L (2-4) % Baso % (Auto) 0.4 (0-2) % Neut # (Auto) 35819 H (2822-6631) /uL Lymph # (Auto) 1600 (3246-5979) /uL [place] # (Auto) 1400 H (0-900) /uL Eos # (Auto) 0 (0-450) /uL Baso # (Auto) 100 (0-100) /uL PT 12.4 (9.4-12.5) SECONDS INR 1.1 (0.9-1.3) APTT 35 (25.1-36.5) SECONDS Sodium 135 L (137-145) mmol/L Potassium 3.7 (3.4-5.1) mmol/L Chloride 103 (98-107) mmol/L Carbon Dioxide 21 L (22-32) mmol/L BUN 10 (7-17) mg/dL Creatinine 0.49 L (0.52-1.04) mg/dL Estimated GFR > 60 (>60) mL/min BUN/Creatinine Ratio 20.4 (6-22) Glucose 113 H (70-100) mg/dL Lactate 1.2 (0.7-2.1) mmol/L Calcium 9.7 (8.4-10.2) mg/dL Total Bilirubin 1.6 H (0.2-1.3) mg/dL AST 22 (14-36) IU/L ALT 18 (<35) IU/L Alkaline Phosphatase 73 (38-126) U/L Total Protein 8.7 H (6.3-8.2) g/dL Albumin 5.3 H (3.5-5.0) g/dL Globulin 3.4 (1.7-4.1) g/dL Albumin/Globulin Ratio 1.6 (1.0-2.8) Lipase 34 (23-300) U/L Procalcitonin 0.17 (<0.5) ng/mL Urine RBC 1-5/hpf (0-5/HPF) Urine WBC >100/hpf H (0-5/HPF) Ur Squamous Epith Cells None seen (0-5/HPF) Urine Bacteria Many (>30) H (None) Vol Urine Centrifuged 10ml (spun) Point of care testing: Urine Dip Bedside Urine Glucose Negative Bedside Urine Bilirubin - Negative Bedside Urine Ketone +/- 5 Urine Specific [place] 1.015 Bedside Urine Occult Blood +++ Bedside Urine pH 6 Bedside Urine Protein +/- 15 Bedside Urine Urobilinogen - Negative Bedside Urine Nitrite + Positive Bedside Urine Leukocytes +++ 500 Esterase Imaging Data Chest x-ray: Radiologist's Impression: PROCEDURE: XR CHEST 1V INDICATIONS: suspected sepsis TECHNIQUE: One view of the chest was acquired. COMPARISON: [facility], CT, CT ABDOMEN PELVIS W CON, 10/23/2023, 14:40. FINDINGS: Surgical changes and devices: None. Lungs and pleura: An incomplete inspiratory result is noted, causing a crowded appearance to the lung markings. No focal infiltrates are seen. No pneumothorax or significant pleural effusions are seen. Mediastinum: Mediastinal contours appear normal. Heart size is normal. Bones and chest wall: No suspicious bony lesions. Overlying soft tissues appear unremarkable. IMPRESSION: Low lung volumes, without an acute abnormality seen by plain film. No focal infiltrates are seen. Dictated by: Vasile Kaminski M.D. on 11/15/2023 at 16 [facility] Narrative Medical decision making narrative: [facility] CC: Painful frequent urination Complicating co-morbidities: Recent group B strep bacteremia and group B strep UTI Medical records reviewed: Previous ED visits Differential considered: Sepsis, pyelonephritis, STD, nephrolithiasis Exam documented above, pertinent findings include: Mild right-sided flank pain mildly tachycardic low-grade temp no real abdominal pain awake alert nontoxic appearing Lab Test results independently reviewed as above. Pertinent findings: WBC 18.6, hemoglobin 14.3, hematocrit 42.2, platelets 279, sodium 135, potassium 3.7, chloride 103, carbon dioxide 21, BUN 10, creatinine 0.49, glucose 113, lactate 0.2, bilirubin 1.6, AST 22, ALT 18, alk-phos 73, procalcitonin 0.17 Urinalysis positive for nitrates and leukocytes Independently reviewed EKG as above Imaging studies independently reviewed: None Consultations: Dr. Sesay updated on patient's symptoms and test results accepts patient Treatments: IV fluid 1 L Rocephin 1 g Re-evaluations: Feeling a little bit better after IV fluids Discussion: Patient recently had bacteremia and UTI having recurrent symptoms. Moves score is elevated. Would benefit from admission and IV antibiotics. Dr. Sesay states that with recent CT does not need reimaging no kidney stones were noted on the CT scan. Symptoms are most consistent with a pyelonephritis Modified Early Warning Score (MEWS) for Clinical Deterioration from [email or web address] on 11/15/2023 All calculations should be rechecked by clinician prior to use RESULT SUMMARY: 3 points 12.7% chance of ICU admission or within 60 days. INPUTS: Systolic BP ?> 0 = 101-199 mmHg Heart rate ?> 2 = 111-129 bpm Respiratory rate ?> 1 = 15-20 bpm Temperature ?> 0 = 35?38.4?C / 95?101.1?F AVPU Score ?> 0 = Alert Discharge Plan Departure Patient Disposition: Admitted As Inpatient Clinical Impression: Pyelonephritis Admit Date/Time: 11/15/23 17:56 Admit Provider: Albert Sesay
--- NOTE | 2023-11-15 16:06 | DI.RAD.S_ITS ---
PROCEDURE: XR CHEST 1V INDICATIONS: suspected sepsis TECHNIQUE: One view of the chest was acquired. COMPARISON: [facility], CT, CT ABDOMEN PELVIS W CON, 10/23/2023, 14:40. FINDINGS: Surgical changes and devices: None. Lungs and pleura: An incomplete inspiratory result is noted, causing a crowded appearance to the lung markings. No focal infiltrates are seen. No pneumothorax or significant pleural effusions are seen. Mediastinum: Mediastinal contours appear normal. Heart size is normal. Bones and chest wall: No suspicious bony lesions. Overlying soft tissues appear unremarkable. IMPRESSION: Low lung volumes, without an acute abnormality seen by plain film. No focal infiltrates are seen. Dictated by: Vasile Kaminski M.D. on 11/15/2023 at 16:15 Approved by: Vasile Kaminski M.D. on 11/15/2023 at 16:15
[2023-11-15] MEDS: SODIUM CHLORIDE 0.9% 1,000 ML 1000 ML IV (16:10)
[2023-11-15 16:15] LABS: INR 1.1 (0.9-1.3); Prothrombin Time 12.4 SECONDS (9.4-12.5)
[2023-11-15 16:17] LABS: PTT Partial Thromboplastin Tim 35 SECONDS (25.1-36.5)
[2023-11-15 16:24] LABS: Lactate (Lactic Acid) 1.2 mmol/L (0.7-2.1)
[2023-11-15 16:25] LABS: Alanine Aminotransferase 18 IU/L (<35); Albumin 5.3 g/dL (3.5-5.0); Albumin Globulin Ratio 1.6 (1.0-2.8); Alkaline Phosphatase 73 U/L (38-126); Aspartate Aminotransferase 22 IU/L (14-36); BUN Creatinine Ratio 20.4 (6-22); Bilirubin Total 1.6 mg/dL (0.2-1.3); Blood Urea Nitrogen 10 mg/dL (7-17); Calcium 9.7 mg/dL (8.4-10.2); Carbon Dioxide 21 mmol/L (22-32); Chloride 103 mmol/L (98-107); Estimated Glomerular Filt Rate > 60 mL/min (>60); Globulin 3.4 g/dL (1.7-4.1); Glucose 113 mg/dL (70-100); Lipase 34 U/L (23-300); Potassium 3.7 mmol/L (3.4-5.1); Sodium 135 mmol/L (137-145); Total Protein 8.7 g/dL (6.3-8.2)
[2023-11-15 16:27] LABS: Add Manual Diff / Slide Review NO; Basophils Absolute Auto 100 /uL (0-100); Basophils Percent Auto 0.4 % (0-2); Eosinophils Absolute Auto 0 /uL (0-450); Hematocrit 42.2 % (36-46); Hemoglobin 14.3 g/dL (12.0-16.0); Lymphocytes Absolute Auto 1600 /uL (1100-4500); Lymphocytes Percent Auto 8.6 % (25-40); Mean Corpuscular Hemoglobin 30.5 PG (26-34); Mean Corpuscular Volume 89.7 fL (80-100); Monocytes Absolute Auto 1400 /uL (0-900); Monocytes Percent Auto 7.6 % (3-14); Neutrophils Absolute Auto 15500 /uL (1500-7000); Neutrophils Percent Auto 83.4 % (50-75); Platelet Count 279 X10^3/uL (150-400); Red Cell Distribution Width 13.2 % (11.6-14.8); White Blood Cell Count 18.6 X10^3/uL (4.5-11.0)
[2023-11-15 16:43] LABS: HEMOLYSIS 15 (0-50); Procalcitonin 0.17 ng/mL (<0.5)
[2023-11-15 16:50] LABS: Bacteria Urine Many (>30); RBC Urine 1-5/HPF (0-5/HPF); Squamous Epithelial Cell Urine None Seen (0-5/HPF); Urine Volume 10mL (spun); WBC Urine >100/HPF (0-5/HPF)
[2023-11-15] MEDS: cefTRIAXone 1,000 MG in SODIUM CHLORIDE 0.9% 100 ML 200 MG IV (16:50)
[2023-11-15 18:00] VITALS: BP 117/76; BP 124/70; PULSE 107; PULSE 113; RESP 16; RESP 20; TEMP 38.2; O2SAT 98; O2SAT 99
[2023-11-15 18:24] VITALS: BMI 28.2
[2023-11-15 21:01] VITALS: BP 115/67; PULSE 114; RESP 18; TEMP 37.7; O2SAT 97
--- NOTE | 2023-11-15 22:06 | P.HP_ITS ---
History of Present Illness History of Present Illness Date Patient Seen: 11/15/23 Time Patient Seen: 21:00 Chief complaint: right flank pain, burning on urination, fever Narrative: 23 y/o male to female transgender presented to ED with fever, chills, dysuria and Rt flank pain, all of that started less then 24 hours ago. ~3 weeks ago seen in the ED with similar simptoms, had BCs drawn, they turned positive and 20 days ago prescribed cefdinir. CT abdomen then showed only thickened bladder wall. Off abx for 10 days now. In the ED tachycardic, febrile, started on Rocephin. Admitted for IV abx, IVFs, cultures pending [facility] Social History household members: family Smoking Status: Never smoker alcohol intake: current Meds Home Medications and Allergies Home Medications Medication Instructions Recorded Confirmed Type cefdinir 300 mg capsule 300 mg PO Q12H #20 caps 10/23/23 Rx finasteride 5 mg tablet 5 mg PO DAILY 11/15/23 11/15/23 History spironolactone 100 mg tablet 100 mg PO BID 11/15/23 11/15/23 History Allergies Allergy/AdvReac Type Severity Reaction Status Date / Time No Known Drug Allergies Allergy Verified 11/15/23 16:00 Review of Systems Constitutional Comments: fever and chills since yesterday Cardiovascular Comments: w/o palpitations Respiratory Comments: w/o shortness of breath or cough Gastrointestinal Comments: w/o constipation or diarrhea RUQ pain Genitourinary Comments: Rt flank pain, dysuria Without hematuria Exam Vital Signs (past 8 hours): - 11/15/23 15:52 11/15/23 18:00 11/15/23 18:00 Temperature 99.9 F H 100.7 F H Pulse Rate 123 H 113 H 107 H Respiratory Rate 20 20 16 Blood Pressure 139/76 124/70 117/76 Pulse Oximetry 98 99 98 Oxygen Delivery Method Room Air Room Air Oxygen Flow Rate 11/15/23 20:00 11/15/23 20:05 11/15/23 21:01 Temperature 99.8 F H Pulse Rate 114 H Respiratory Rate 18 Blood Pressure 115/67 Pulse Oximetry 97 Oxygen Delivery Method Room Air Room Air Oxygen Flow Rate 0 Oxygen Delivery Method Room Air Oxygen Flow Rate 0 Const Other: Laying in bed in no distress HENMT Other: Normocephalic Neck Other: Supple Resp Other: Normal respiratory effort Cardio Other: Sinus tachycardia GI Other: abdomen obese, not distended, w/o peritoneal signs Skin Other: w/o rashes Neuro Other: w/o deficits Extrem Other: w/o swelling Psych Other: Appropriate mood Objective Labs 11/15/23 15:50 11/15/23 15:50 Labs: Laboratory Results - last 24 hr 11/15/23 11/15/23 15:50 16:14 WBC 18.6 H RBC 4.70 Hgb 14.3 Hct 42.2 MCV 89.7 MCH 30.5 MCHC 34.0 RDW 13.2 Plt Count 279 Neut % (Auto) 83.4 H Lymph % (Auto) 8.6 L [place] % (Auto) 7.6 Eos % (Auto) 0.0 L Baso % (Auto) 0.4 Neut # (Auto) 50127 H Lymph # (Auto) 1600 [place] # (Auto) 1400 H Eos # (Auto) 0 Baso # (Auto) 100 PT 12.4 INR 1.1 APTT 35 Sodium 135 L Potassium 3.7 Chloride 103 Carbon Dioxide 21 L BUN 10 Creatinine 0.49 L Estimated GFR > 60 BUN/Creatinine Ratio 20.4 Glucose 113 H Lactate 1.2 Calcium 9.7 Total Bilirubin 1.6 H AST 22 ALT 18 Alkaline Phosphatase 73 Total Protein 8.7 H Albumin 5.3 H Globulin 3.4 Albumin/Globulin Ratio 1.6 Lipase 34 Procalcitonin 0.17 Urine RBC 1-5/hpf Urine WBC >100/hpf H Ur Squamous Epith Cells None seen Urine Bacteria Many (>30) H Vol Urine Centrifuged 10ml (spun) Assessment & Plan Assessment and plan (1) Pyelonephritis: Status: Acute (2) SIRS due to infectious process without acute organ dysfunction: Status: Acute (3) Gender dysphoria in adult: Status: Acute Assessment & Plan narrative: 1. Recurrent UTI, this time Rt pyelonephritis clinically - had CT 3-4 weeks ago w/o evidence of either pyelonephritis or stones, imaging not repeated - cultures pending, empiric Rocephin 2. SIRS - IVFs - w/o JIN 3. Gender Dysphoria - Finasteride, Aldactone DVT prophylaxis - SCDs, Lovenox (not clear if was on estrogens) Quality VTE Deep Vein Thrombosis/Pulmonary Embolism Present on Admission: No
[2023-11-15] MEDS: ACETAMINOPHEN 325 MG TABLET 1000 MG PO (22:16)
[2023-11-15] MEDS: SODIUM CHLORIDE 0.9% 1,000 ML 100 ML IV (22:17)
[2023-11-16 00:08] VITALS: BP 113/60; PULSE 100; RESP 16; TEMP 37.2; O2SAT 98
[2023-11-16 05:17] VITALS: BP 119/68; PULSE 90; RESP 19; TEMP 37; O2SAT 100
[2023-11-16 06:35] LABS: Add Manual Diff / Slide Review NO; Basophils Absolute Auto 100 /uL (0-100); Basophils Percent Auto 0.5 % (0-2); Eosinophils Absolute Auto 0 /uL (0-450); Eosinophils Percent Auto 0.3 % (2-4); Hematocrit 37.3 % (36-46); Hemoglobin 12.7 g/dL (12.0-16.0); Lymphocytes Absolute Auto 1300 /uL (1100-4500); Lymphocytes Percent Auto 8.9 % (25-40); Mean Corpuscular Hemoglobin 30.5 PG (26-34); Mean Corpuscular Volume 89.8 fL (80-100); Monocytes Absolute Auto 1600 /uL (0-900); Monocytes Percent Auto 10.9 % (3-14); Neutrophils Absolute Auto 11400 /uL (1500-7000); Neutrophils Percent Auto 79.4 % (50-75); Platelet Count 223 X10^3/uL (150-400); Red Blood Cell Count 4.15 X10^6/uL (4.0-5.2); Red Cell Distribution Width 13.2 % (11.6-14.8); White Blood Cell Count 14.4 X10^3/uL (4.5-11.0)
[2023-11-16 06:49] LABS: BUN Creatinine Ratio 15.9 (6-22); Blood Urea Nitrogen 7 mg/dL (7-17); Carbon Dioxide 24 mmol/L (22-32); Chloride 106 mmol/L (98-107); Estimated Glomerular Filt Rate > 60 mL/min (>60); Glucose 125 mg/dL (70-100); HEMOLYSIS 27 (0-50); Sodium 136 mmol/L (137-145)
--- NOTE | 2023-11-16 07:40 | PM.PN.1 ---
Subjective Subjective Interval history: Doing better, still having some flank pain and dysuria. Had been on antibiotics for about a week and then off for 1-2 weeks before recurrence of symptoms. She was on cefdinir. She does not have a primary care doctor, and notes a history of recurrent UTI. No nausea or vomiting. Cultures are pending (urine with Gram-negative bacilli). Blood cultures remained negative. Exam Vital Signs (past 8 hours): - 11/16/23 00:08 11/16/23 05:17 Temperature 99.0 F 98.6 F Pulse Rate 100 H 90 Respiratory Rate 16 19 Blood Pressure 113/60 119/68 Pulse Oximetry 98 100 Oxygen Flow Rate 0 0 Oxygen Delivery Method Room Air Oxygen Flow Rate 0 Narrative Exam Narrative: NAD, alert and oriented. Fluent speech. Lungs are clear, normal rate and effort. Heart is regular, no murmur gallop or rub. Abdomen is soft, non distended. Extremities are free of edema. No CVAT. Objective Labs 11/16/23 06:23 11/16/23 06:23 Labs: Laboratory Results - last 24 hr 11/15/23 11/15/23 11/16/23 15:50 16:14 06:23 WBC 18.6 H 14.4 H RBC 4.70 4.15 Hgb 14.3 12.7 Hct 42.2 37.3 MCV 89.7 89.8 MCH 30.5 30.5 MCHC 34.0 34.0 RDW 13.2 13.2 Plt Count 279 223 Neut % (Auto) 83.4 H 79.4 H Lymph % (Auto) 8.6 L 8.9 L [place] % (Auto) 7.6 10.9 Eos % (Auto) 0.0 L 0.3 L Baso % (Auto) 0.4 0.5 Neut # (Auto) 29513 H 64284 H Lymph # (Auto) 1600 1300 [place] # (Auto) 1400 H 1600 H Eos # (Auto) 0 0 Baso # (Auto) 100 100 PT 12.4 INR 1.1 APTT 35 Sodium 135 L 136 L Potassium 3.7 4.0 Chloride 103 106 Carbon Dioxide 21 L 24 BUN 10 7 Creatinine 0.49 L 0.44 L Estimated GFR > 60 > 60 BUN/Creatinine Ratio 20.4 15.9 Glucose 113 H 125 H Lactate 1.2 Calcium 9.7 9.0 Total Bilirubin 1.6 H AST 22 ALT 18 Alkaline Phosphatase 73 Total Protein 8.7 H Albumin 5.3 H Globulin 3.4 Albumin/Globulin Ratio 1.6 Lipase 34 Procalcitonin 0.17 Urine RBC 1-5/hpf Urine WBC >100/hpf H Ur Squamous Epith Cells None seen Urine Bacteria Many (>30) H Vol Urine Centrifuged 10ml (spun) PFSH Social History household members: family Smoking Status: Never smoker alcohol intake: current Assessment & Plan Assessment & Plan narrative: 1. Recurrent urinary tract infection with right pyelonephritis, present on admission and active. 2. SIRS, present on admission and resolved. 3. Transgender male to female, stable. PLAN: -continue Abx and follow blood and urine cultures. Home in 1 day. Quality VTE Deep Vein Thrombosis/Pulmonary Embolism Present on Admission: No
[2023-11-16 08:00] VITALS: BP 113/67; PULSE 95; RESP 16; O2SAT 98
[2023-11-16] MEDS: FINASTERIDE 5 MG TABLET PO (08:53)
[2023-11-16] MEDS: ENOXAPARIN 40 MG/0.4 ML SYRINGE SUBCUT (08:53)
[2023-11-16] MEDS: LACTOBACILLUS ACIDOPHILUS TABLET 1 EACH PO ×2 (08:53→16:54)
[2023-11-16] MEDS: SPIRONOLACTONE 25 MG TABLET 100 MG PO ×2 (08:53→20:57)
[2023-11-16] MEDS: OXYCODONE IR 5 MG TABLET PO (08:55)
--- NOTE | 2023-11-16 11:29 | CM.DANOTE ---
Patient is a 23 yo Transgendered female who was admitted OBS on 11/15/23 for Pyelonephritis and UTI. Pt currently does not have insurance and PCP not listed. EMR was reviewed. Per MD, pt failed outpt abx for UTI and admitted for IV-Abx and awaiting further culture results and pyelonephritis and SIRS. Not yet stable for discharge. 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 Pt confirms that she had [employer] but it lapsed and now has [employer] coverage pending document review. Pt was given [facility] application by Admissions Counselors. Pt with old signs of healed self cutting on her upper arms visible without any new cutting signs. Pt does not anticipate any discharge planning needs and preference is to discharge home when stable and states family can provide transport. Plan: SW to follow closely for plan of discharge home on orals pending culture results and any further identified discharge planning needs. MAGDALENA Wood Discharge Planning/Care Management CM Discharge Assessment Start: 11/16/23 11:19 Freq: Status: Active Protocol: Document 11/16/23 11:23 BF (Rec: 11/16/23 11:29 BF [id number]) Discharge Planning Assessment Assigned [employer] MAGDALENA Jean DPOA/Assigned Designee Name informally parents Advance Directives? No Advance Directives on File No History Provided By Patient,Family Member,Medical Record Has Patient been admitted in last 30 No days? Prior Living Arrangements House Household Members family Type of transporation used prior to Drives own vehicle admit Independent with ADL's Yes Is patient alert and oriented? Yes Caregiver for Another No Barriers to Discharge No Discharge Plan Home Transportation Arrangement family Referrals Initiated None needed,Medicaid Application Additional Comment Pt's insurance lapsed and now [employer] coverage pending Whiteboard Updated in Patient Room with Yes name and ext. # of [employer]ing [employer] Composite Fabricator Review Status In Process Please Provide Date Initial DC 11/16/23 Assessment Was Performed Next Review Type Continued Stay Review
[2023-11-16 12:00] VITALS: BP 107/65; PULSE 98; RESP 16; TEMP 37.1; O2SAT 99
[2023-11-16] MEDS: cefTRIAXone 1,000 MG in SODIUM CHLORIDE 0.9% 100 ML 200 MG IV (16:54)
[2023-11-16] MEDS: ACETAMINOPHEN 325 MG TABLET 1000 MG PO (16:55)
[2023-11-16 18:00] VITALS: BP 113/66; PULSE 107; RESP 16; O2SAT 96
[2023-11-16] MEDS: SODIUM CHLORIDE 0.9% 1,000 ML 100 ML IV (19:32)
[2023-11-16 20:45] VITALS: BP 124/70; PULSE 89; RESP 16; TEMP 37.2; O2SAT 98
[2023-11-16] MEDS: IBUPROFEN 600 MG TABLET PO (20:57)
[2023-11-17 00:18] VITALS: BP 109/63; PULSE 85; RESP 16; TEMP 36.8; O2SAT 99
[2023-11-17] MEDS: SODIUM CHLORIDE 0.9% 1,000 ML 100 ML IV (05:17)
[2023-11-17 05:21] VITALS: BP 100/60; PULSE 72; RESP 16; TEMP 37.1; O2SAT 98
[2023-11-17 05:57] LABS: Add Manual Diff / Slide Review NO; Basophils Absolute Auto 0 /uL (0-100); Basophils Percent Auto 0.7 % (0-2); Eosinophils Absolute Auto 100 /uL (0-450); Eosinophils Percent Auto 1.9 % (2-4); Hematocrit 37.6 % (36-46); Hemoglobin 12.8 g/dL (12.0-16.0); Lymphocytes Absolute Auto 2000 /uL (1100-4500); Lymphocytes Percent Auto 29.5 % (25-40); Mean Corpuscular HGB Conc 33.9 % (30-36); Mean Corpuscular Hemoglobin 30.9 PG (26-34); Mean Corpuscular Volume 91.2 fL (80-100); Monocytes Absolute Auto 1200 /uL (0-900); Neutrophils Absolute Auto 3500 /uL (1500-7000); Neutrophils Percent Auto 50.9 % (50-75); Platelet Count 205 X10^3/uL (150-400); Red Blood Cell Count 4.13 X10^6/uL (4.0-5.2); Red Cell Distribution Width 13.5 % (11.6-14.8); White Blood Cell Count 6.9 X10^3/uL (4.5-11.0)
[2023-11-17 06:17] LABS: BUN Creatinine Ratio 12.8 (6-22); Blood Urea Nitrogen 5 mg/dL (7-17); Calcium 8.8 mg/dL (8.4-10.2); Carbon Dioxide 22 mmol/L (22-32); Chloride 113 mmol/L (98-107); Estimated Glomerular Filt Rate > 60 mL/min (>60); Glucose 121 mg/dL (70-100); HEMOLYSIS < 15 (0-50); Potassium 3.4 mmol/L (3.4-5.1); Sodium 142 mmol/L (137-145)
[2023-11-17 08:00] VITALS: BP 126/72; PULSE 86; RESP 17; TEMP 36.6; O2SAT 100
[2023-11-17] MEDS: SPIRONOLACTONE 25 MG TABLET 100 MG PO (09:26)
[2023-11-17] MEDS: FINASTERIDE 5 MG TABLET PO (09:26)
[2023-11-17] MEDS: LACTOBACILLUS ACIDOPHILUS TABLET 1 EACH PO (09:26)
[2023-11-17] MEDS: ACETAMINOPHEN 325 MG TABLET 1000 MG PO (09:29)
--- NOTE | 2023-11-17 11:11 | P.DS_ITS ---
History of Present Illness History of Present Illness Date Patient Seen: 11/17/23 Time Patient Seen: 11:11 Chief complaint: right flank pain, burning on urination, fever Narrative: Per admitting provider, 23 y/o male to female transgender presented to ED with fever, chills, dysuria and Rt flank pain, all of that started less then 24 hours ago. ~3 weeks ago seen in the ED with similar simptoms, had BCs drawn, they turned positive and 20 days ago prescribed cefdinir. CT abdomen then showed only thickened bladder wall. Off abx for 10 days now. In the ED tachycardic, febrile, started on Rocephin. Admitted for IV abx, IVFs, cultures pending Discharge Providers Provider Date of admission: 11/15/23 17:56 Discharge Date: 11/17/23 Primary care physician: Doctor Morrell, Discharge provider: Noé Beverly DO Summary Hospital Course Discharge Diagnosis: 1. Recurrent urinary tract infection with probable prostatitis, present on admission and active. 2. SIRS, present on admission and resolved. 3. Transgender male to female, stable. Hospital Course: This is a 23 year old female, transgender male to female, who presented with recurrent UTI. She improved with antibiotic therapy in the hospital. With recurrence shortly after previous completion of antibiotics, this is concerning for a prostatitis rather than simple or complicated cystitis / pyelonephritis. She was started on levofloxacin for 6 weeks of therapy for treatment of possible prostatitis. Cultures show E. coli sensitive to fluoroquinolones. Time Spent with Patient Time spent: Less than 30 minutes Exam Vital Signs (past 8 hours): - 11/17/23 05:21 11/17/23 08:00 Temperature 98.8 F 97.9 F Pulse Rate 72 86 Respiratory Rate 16 17 Blood Pressure 100/60 126/72 Pulse Oximetry 98 100 Oxygen Flow Rate 0 0 Oxygen Delivery Method Room Air Oxygen Flow Rate 0 Narrative Exam Narrative: NAD, alert and oriented. Fluent speech. Lungs are clear, normal rate and effort. Heart is regular, no murmur gallop or rub. Abdomen is soft, non distended. Extremities are free of edema. No CVAT. Objective Labs 11/17/23 05:35 11/17/23 05:35 Labs: Laboratory Results - last 24 hr 11/17/23 05:35 WBC 6.9 D RBC 4.13 Hgb 12.8 Hct 37.6 MCV 91.2 MCH 30.9 MCHC 33.9 RDW 13.5 Plt Count 205 Neut % (Auto) 50.9 D Lymph % (Auto) 29.5 D [place] % (Auto) 17.0 H Eos % (Auto) 1.9 L Baso % (Auto) 0.7 Neut # (Auto) 3500 Lymph # (Auto) 2000 [place] # (Auto) 1200 H Eos # (Auto) 100 Baso # (Auto) 0 Sodium 142 Potassium 3.4 Chloride 113 H Carbon Dioxide 22 BUN 5 L Creatinine 0.39 L Estimated GFR > 60 BUN/Creatinine Ratio 12.8 Glucose 121 H Calcium 8.8 PFSH Social History household members: family Smoking Status: Never smoker alcohol intake: current Discharge Plan Discharge Plan Patient Disposition: Home Provider Discharge Comment: You were admitted to the hospital with recurrent urinary infection. Will treat for 6 weeks of antibiotics with possible prostatitis. Discharge orders & Medications Prescriptions: New levofloxacin 500 mg tablet 500 mg PO DAILY 42 Days Qty: 42 0RF Continued spironolactone 100 mg Tablet 100 mg PO BID finasteride 5 mg Tablet 5 mg PO DAILY Follow up/Referrals: Doctor Morrell MD [Primary Care Provider] - Diet/Activity/Treatments Diet: Diet as Tolerated and Regular Activity: As tolerated, no restrictions. Visit Report/Discharge Packet Instructions: DI for Urinary Tract Infection (UTI), Levofloxacin Stand Alone Forms: Patient Portal/API, Stroke Signs & Symptoms Discharge Data Primary Care Provider: Doctor Petros Attending Provider: Albert Sesay Admit Date/Time: 11/15/23 17:56 Quality VTE Deep Vein Thrombosis/Pulmonary Embolism Present on Admission: No
--- NOTE | 2023-11-17 11:17 | CM.DPC ---
DCP Cont. Reviewed EMR and team rounds for status updates. Pt has been medically cleared for home d/c today, her family will be transporting her back home. No further DCP needs identified at this time.
--- NOTE | 2023-11-17 12:42 | PC.NURSE ---
Discharge Note Patient A&O, VSS, RA, no complaints of pain/discomfort. PIV discontinued. Patient able to dress self and pack al belongings. Discharge packet reviewed with patient, all questions/concerns addressed. Patient able to dress self and pack all belongings. Patient taken down to POV.
--- NOTE | 2023-11-26 07:44 | PC.NURSE ---
Late Entry: Ceftriaxone infusion initiated /6 at 1654 complete at 1725.
== END 2023-11-17 12:00 | disposition home or self-care (01) ==
LOC: ED 17:12 → AC 18:46
PROVIDERS: Hospitalist; Internal Medicine; Admitting Provider Student in an Organized Health Care Education/Training Program; Emergency Provider Emergency Medicine; Referring Provider Emergency Medicine; Visit Provider Student in an Organized Health Care Education/Training Program
DX: N39.0 Urinary tract infection, site not specified (principal); N12 Tubulo-interstitial nephritis, not specified as acute or chronic; F64.0 Transsexualism
CPT/HCPCS: 36415; 71045; 80048; 80053; 81003; 81015; 83605; 83690; 84145; 85025; 85610; 85730; 87040; 87077; 87086; 87186; 96361; 96365; 96366; 99284; G0378; J0696; J1650

== ENCOUNTER 2024-03-17 16:53 | Emergency (ER) | payer OTHER, MEDICAID, SELFPAY ==
[2024-03-17] VITALS (10 sets, daily range): BP systolic 110–130; BP diastolic 61–81; PULSE 102–154; RESP 18–26; TEMP 39.2; O2SAT 96–100; BMI 28.8
--- NOTE | 2024-03-17 17:02 | DI.RAD.S_ITS ---
PROCEDURE: XR CHEST 1V INDICATIONS: suspected sepsis TECHNIQUE: One view of the chest was acquired. COMPARISON: [facility], CR, XR CHEST 1V, 11/15/2023, 16:25. FINDINGS: Surgical changes and devices: None. Lungs and pleura: Lungs are clear. No pleural effusions or pneumothorax. Mediastinum: Mediastinal contours appear normal. Heart size is normal. Bones and chest wall: No suspicious bony lesions. Overlying soft tissues appear unremarkable. IMPRESSION: No acute cardiopulmonary abnormality is seen. Approved by: Ellie Bailey M.D.,Ph.D. on 03/17/2024 at 18:02
--- NOTE | 2024-03-17 17:02 | EKG_ITS ---
[id number] [address] Test Date: 2024-03-17 Pat Name: Amber Milner Department: Room: Gender: Female Operations Analyst: : 2000 Requested By: Order Number: [id number] Reading MD: Angel Kinney MD Measurements Intervals Ashley Rate: 139 P: 35 CT: 144 QRS: 43 QRSD: 94 T: 32 QT: 274 QTc: 416 Interpretive Statements Sinus tachycardia Electronically Signed On 03-18-2024 12:52:11 PDT by Angel Kinney MD
[2024-03-17] MEDS: SODIUM CHLORIDE 0.9% 1,000 ML 1000 ML IV (17:18)
[2024-03-17 17:34] LABS: Add Manual Diff / Slide Review NO; Basophils Absolute Auto 0 /uL (0-100); Basophils Percent Auto 0.2 % (0-2); Eosinophils Absolute Auto 100 /uL (0-450); Eosinophils Percent Auto 0.6 % (2-4); Hematocrit 44.3 % (36-46); Hemoglobin 15.2 g/dL (12.0-16.0); Lymphocytes Absolute Auto 500 /uL (1100-4500); Lymphocytes Percent Auto 3.9 % (25-40); Mean Corpuscular HGB Conc 34.2 % (30-36); Mean Corpuscular Hemoglobin 30.9 PG (26-34); Mean Corpuscular Volume 90.2 fL (80-100); Monocytes Absolute Auto 200 /uL (0-900); Monocytes Percent Auto 1.9 % (3-14); Neutrophils Absolute Auto 11800 /uL (1500-7000); Neutrophils Percent Auto 93.4 % (50-75); Platelet Count 242 X10^3/uL (150-400); Red Blood Cell Count 4.91 X10^6/uL (4.0-5.2); Red Cell Distribution Width 13.3 % (11.6-14.8); White Blood Cell Count 12.7 X10^3/uL (4.5-11.0)
[2024-03-17 17:44] LABS: Prothrombin Time 11.5 SECONDS (9.4-12.5)
[2024-03-17 17:47] LABS: PTT Partial Thromboplastin Tim 32 SECONDS (25.1-36.5)
[2024-03-17 17:53] LABS: Lactate (Lactic Acid) 1.8 mmol/L (0.7-2.1)
[2024-03-17 17:54] LABS: Alanine Aminotransferase 23 IU/L (<35); Albumin 4.9 g/dL (3.5-5.0); Albumin Globulin Ratio 1.6 (1.0-2.8); Alkaline Phosphatase 87 U/L (38-126); Aspartate Aminotransferase 23 IU/L (14-36); BUN Creatinine Ratio 14.3 (6-22); Bilirubin Total 0.7 mg/dL (0.2-1.3); Blood Urea Nitrogen 14 mg/dL (7-17); Calcium 9.3 mg/dL (8.4-10.2); Carbon Dioxide 18 mmol/L (22-32); Chloride 107 mmol/L (98-107); Estimated Glomerular Filt Rate > 60 mL/min (>60); Globulin 3.1 g/dL (1.7-4.1); Glucose 105 mg/dL (70-100); HEMOLYSIS < 15 (0-50); Lipase 51 U/L (23-300); Potassium 3.8 mmol/L (3.4-5.1); Sodium 138 mmol/L (137-145)
[2024-03-17] MEDS: ONDANSETRON 4 MG/2 ML INJ IV (18:00)
[2024-03-17] MEDS: cefTRIAXone 2,000 MG in SODIUM CHLORIDE 0.9% 100 ML 200 MG IV (18:06)
[2024-03-17 18:10] LABS: Procalcitonin 0.154 ng/mL (<0.5)
[2024-03-17 18:15] LABS: Appearance Urine UA CLEAR; Bilirubin Urine UA NEGATIVE (NEGATIVE); Color Urine UA YELLOW; Glucose Urine UA NEGATIVE (Negative); Ketones Urine UA NEGATIVE (NEGATIVE); Leukocyte Esterase Urine UA 3+ (NEGATIVE); Nitrite Urine UA NEGATIVE (Negative); Occult Blood Urine UA TRACE-INTACT (Negative); Protein Urine UA NEGATIVE (Negative); Specific Gravity Urine UA 1.015 (1.000-1.035); Urobilinogen Urine UA 0.2 E.U./dL (0.2)
[2024-03-17] MEDS: KETOROLAC 30 MG/ML VIAL 15 MG IV (18:24)
[2024-03-17 18:28] LABS: Bacteria Urine Many (>30); RBC Urine 1-5/HPF (0-5/HPF); Urine Volume 10mL (spun); WBC Urine 30-100/HPF (0-5/HPF)
[2024-03-17 18:29] LABS: Culture Indicated Urine Specimen Cultured; Squamous Epithelial Cell Urine 5-10 /HPF (0-5/HPF)
[2024-03-17 18:35] LABS: HCG Quantitative /Beta subunit < 2.39 mIU/mL
--- NOTE | 2024-03-17 18:35 | ED_ITS ---
HPI - Female Genitourinary General Chief complaint: Urogenital-Female Stated complaint: UTI symptoms Time Seen by Provider: 03/17/24 17:27 Source: patient Mode of arrival: Ambulatory History of Present Illness HPI Narrative: Patient 23-year-old female transgender presenting today with fever chills dysuria. She has been admitted previously with bacteremia back in November. She has been admitted for sepsis. She currently is noted to have a fever 102 and tachycardia. She denies any sort of flank pain abdominal pain she has feeling a little bit nauseous. Decrease in appetite no vomiting chest pain or shortness of breath. Denies any current sexual activity. Recently got a referral to Urology but did not quite go through however today she got confirmation did go through. She does report some penile discharge but denies any sort of rash or abnormality to the penis. Denies testicular pain as well. Previously had group B strep bacteremia previous group B strep UTI and E coli UTI with minimal drug resistance. Saw primary care physician in January with another UTI and was put on short course of antibiotics. Reports that when she was hospitalized in November she was put on 40 days of antibiotics and finished and took them all. Related Data Home Medications Medication Instructions Recorded Confirmed finasteride 5 mg tablet 5 mg PO DAILY 11/15/23 11/16/23 spironolactone 100 mg tablet 100 mg PO BID 11/15/23 11/16/23 Previous Rx's Medication Instructions Recorded cefdinir 300 mg capsule 300 mg PO Q12H #20 caps 03/17/24 Allergies Allergy/AdvReac Type Severity Reaction Status Date / Time Opioids - Morphine Analogues Allergy Verified 03/17/24 16:57 Patient History alcohol intake frequency: holidays/special occasions only Substance Use Type: does not use Exam Initial Vital Signs Initial Vital Signs: Vital Signs Temperature 102.6 F H 03/17/24 16:57 Pulse Rate 154 H 03/17/24 16:57 Respiratory Rate 26 H 03/17/24 16:57 Blood Pressure 128/77 03/17/24 16:57 Pulse Oximetry 100 03/17/24 16:57 Oxygen Delivery Method Room Air 03/17/24 16:57 GENERAL: Appears to not feel well HEENT: Head atraumatic,EOMI, pupils reactive, face symmetric, moist mucous membranes CARDIOVASCULAR: Regular rate and rhythm without murmurs, rubs or gallops. RESPIRATORY: Breath sounds equal bilaterally, no wheezes rales or rhonchi. ABDOMEN: Soft, nontender. Normoactive bowel sounds all 4 quadrants. No guarding or rebound. : No CVA tenderness EXTREMITIES: Normal range of motion, no clubbing or edema. Neurovascularly intact NEUROLOGICAL: Alert and oriented x4.Normal gait and speech. Cranial nerves II through XII grossly intact. SKIN: Warm, dry, no laceration, no petechiae, no rashes or lesions. Course Orders Ordered: ED Orders 03/17/24 17:02 XR chest 1V Stat EKG-12 Lead Stat RT Consult Eval and Treat NOW 03/17/24 17:22 Complete Blood Count AUTO DIFF Stat Comprehensive Metabolic Panel Stat HCG Quantitative /Beta subunit Stat Lactate (Lactic Acid) Stat Lipase Stat PTT Partial Thromboplastin Doc Stat Procalcitonin Stat Prothrombin Time INR Stat 03/17/24 17:30 Blood Culture Stat 03/17/24 18:01 Chlamydia Gonorrhea PCR -URINE Stat Urinalysis and Microscopic Stat Urine Culture Stat Discontinued Medications Sodium Chloride (Normal Saline 0.9%) 1,000 mls @ 1,000 mls/hr IV BOLUS ONE Stop: 03/17/24 18:01 Last Infusion: 03/17/24 18:26 Dose: Infused Documented By: Admin: 03/17/24 17:18 Dose: 1,000 mls/hr Documented By: DAYLIN Sodium Chloride (Normal Saline 0.9%) 1,000 mls @ 2,000 mls/hr IV BOLUS ONE Stop: 03/17/24 17:56 Last Infusion: 03/17/24 19:47 Dose: Infused Documented By: Admin: 03/17/24 18:40 Dose: 2,000 mls/hr Documented By: AMERICO Ceftriaxone Sodium 2,000 mg/ (Sodium Chloride) 100 mls @ 200 mls/hr IV NOW ONE Stop: 03/17/24 17:30 Last Infusion: 03/17/24 18:34 Dose: Infused Documented By: Admin: 03/17/24 18:06 Dose: 200 mls/hr Documented By: AMERICO Ketorolac Tromethamine (Ketorolac 30 Mg/Ml Vial) 15 mg IV NOW ONE Stop: 03/17/24 18:12 Last Admin: 03/17/24 18:24 Dose: 15 mg Documented By: AMERICO Ondansetron HCl (Ondansetron 4 Mg/2 Ml Inj) 4 mg IV NOW PRN PRN Reason: Nausea And Vomiting Last Admin: 03/17/24 18:00 Dose: 4 mg Documented By: AMERICO Ondansetron HCl (Ondansetron 4 Mg Odt) 4 mg SL NOW PRN PRN Reason: Nausea And Vomiting Vital Signs Vital signs: Vital Signs - 8 hr 03/17/24 16:57 03/17/24 17:13 03/17/24 17:16 Temperature 102.6 F H Pulse Rate 154 H 102 H Respiratory Rate 26 H Blood Pressure 128/77 128/81 Pulse Oximetry 100 96 Oxygen Delivery Method Room Air 03/17/24 17:16 03/17/24 17:56 03/17/24 17:56 Temperature Pulse Rate 130 H 126 H Respiratory Rate 26 H 21 Blood Pressure 130/80 Pulse Oximetry 99 99 Oxygen Delivery Method 03/17/24 18:00 03/17/24 18:00 03/17/24 18:30 Temperature Pulse Rate 135 H 123 H Respiratory Rate 25 H 20 Blood Pressure 116/69 Pulse Oximetry 98 97 Oxygen Delivery Method 03/17/24 18:30 03/17/24 19:00 03/17/24 19:00 Temperature Pulse Rate 121 H Respiratory Rate 18 Blood Pressure 115/69 117/62 Pulse Oximetry 97 Oxygen Delivery Method 03/17/24 19:30 03/17/24 19:30 03/17/24 19:58 Temperature Pulse Rate 108 H 111 H Respiratory Rate 25 H 24 Blood Pressure 110/61 Pulse Oximetry 98 98 Oxygen Delivery Method 03/17/24 19:58 03/17/24 20:00 03/17/24 20:00 Temperature Pulse Rate 110 H Respiratory Rate 24 Blood Pressure 117/71 117/71 Pulse Oximetry 97 Oxygen Delivery Method MDM - Female Genitourinary Lab Data 03/17/24 17:22 03/17/24 17:22 Labs: Lab Results 03/17/24 03/17/24 Range/Units 17:22 18:01 WBC 12.7 H (4.5-11.0) X10^3/uL RBC 4.91 (4.0-5.2) X10^6/uL Hgb 15.2 (12.0-16.0) g/dL Hct 44.3 (36-46) % MCV 90.2 (80-100) fL MCH 30.9 (26-34) PG MCHC 34.2 (30-36) % RDW 13.3 (11.6-14.8) % Plt Count 242 (150-400) X10^3/uL Neut % (Auto) 93.4 H (50-75) % Lymph % (Auto) 3.9 L (25-40) % [place] % (Auto) 1.9 L (3-14) % Eos % (Auto) 0.6 L (2-4) % Baso % (Auto) 0.2 (0-2) % Neut # (Auto) 39020 H (0116-2711) /uL Lymph # (Auto) 500 L (0433-1852) /uL [place] # (Auto) 200 (0-900) /uL Eos # (Auto) 100 (0-450) /uL Baso # (Auto) 0 (0-100) /uL PT 11.5 (9.4-12.5) SECONDS INR 1.0 (0.9-1.3) APTT 32 (25.1-36.5) SECONDS Sodium 138 (137-145) mmol/L Potassium 3.8 (3.4-5.1) mmol/L Chloride 107 (98-107) mmol/L Carbon Dioxide 18 L (22-32) mmol/L BUN 14 (7-17) mg/dL Creatinine 0.98 (0.52-1.04) mg/dL Estimated GFR > 60 (>60) mL/min BUN/Creatinine Ratio 14.3 (6-22) Glucose 105 H (70-100) mg/dL Lactate 1.8 (0.7-2.1) mmol/L Calcium 9.3 (8.4-10.2) mg/dL Total Bilirubin 0.7 (0.2-1.3) mg/dL AST 23 (14-36) IU/L ALT 23 (<35) IU/L Alkaline Phosphatase 87 (38-126) U/L Total Protein 8.0 (6.3-8.2) g/dL Albumin 4.9 (3.5-5.0) g/dL Globulin 3.1 (1.7-4.1) g/dL Albumin/Globulin Ratio 1.6 (1.0-2.8) Lipase 51 (23-300) U/L Procalcitonin 0.154 (<0.5) ng/mL HCG, Quant < 2.39 mIU/mL Urine Color Yellow Urine Appearance Clear Urine pH 8.0 (4.5-8.0) Ur Specific [place] 1.015 (1.000-1.035) Urine Protein Negative (Negative) Urine Glucose (UA) Negative (Negative) g/dL Urine Ketones Negative (NEGATIVE) Urine Occult Blood Trace-intact (Negative) Urine Nitrate Negative (Negative) Urine Bilirubin Negative (NEGATIVE) Urine Urobilinogen 0.2 (0.2) E.U./dL Ur Leukocyte Esterase 3+ H (NEGATIVE) Urine RBC 1-5/hpf (0-5/HPF) Urine WBC 30-100/hpf H (0-5/HPF) Ur Squamous Epith Cells 5-10 /hpf H (0-5/HPF) Urine Bacteria Many (>30) H (None) Ur Culture Indicated? Specimen cultured Vol Urine Centrifuged 10ml (spun) Ur Chlamydia DNA (PCR) Not detected N gonorrhoeae DNA (PCR) Not detected Urine Dip Bedside Urine Glucose Negative Bedside Urine Bilirubin - Negative Bedside Urine Ketone - Negative Urine Specific [place] 1.015 Bedside Urine Occult Blood +/- Bedside Urine pH 8.0 Bedside Urine Protein - Negative Bedside Urine Urobilinogen - Negative Bedside Urine Nitrite - Negative Bedside Urine Leukocytes +++ 500 Esterase ECG Data Attestation: I personally reviewed and interpreted this ECG as follows: Prior ECG tracings: available for review Interpretation: Sinus tachycardia rate 139 AL interval 144 QRS [address] changes no Q- waves or T-wave inversions MDM Narrative Medical decision making narrative: [facility] CC: Painful urination Complicating co-morbidities: Frequent UTIs with bacteremia, transgender Medical records reviewed: Previous admission, October 22 does show group B strep blood cultures x2 with strep B UTI last urinalysis is 11/15/2023 with E coli most recent UTI was in January. She has referral for Urology that just went through Differential considered: UTI pyelonephritis, STD Exam documented above, pertinent findings include: Tachycardic abdomen is soft nontender bilateral CVAs are nontender Lab Test results independently reviewed as above. Pertinent findings: WBC 12.7 bicarb 18, lactic acid 1.8 procalcitonin 0.15, urinalysis 3+ leukocyte many bacteria specimen culture STD testing for chlamydia gonorrhea negative Independently reviewed EKG as above sinus tachycardia without ischemia or Q-wave Imaging studies independently reviewed: Chest x-ray reviewed no acute cardiopulmonary process Consultations: None Treatments: IV fluids Rocephin Toradol Re-evaluations: Heart rate has improved significantly she overall appears well nontoxic Discussion: Patient 23-year-old transgender female presenting today with recurrent UTI. She does have an appointment to a urologist. She has previously had bacteremia. Today she is found to have a fever of 102 and tachycardia. She was also found to have a UTI. Heart rate definitely improved with IV fluids and Toradol. She overall appears well nontoxic her abdomen is nontender she has no flank pain. At this time she has given a dose of Rocephin. She feels comfortable going home with cefdinir. She now has a referral for Urology. She understands and knows that we could potentially call her back if blood cultures are positive. Discharge Plan Departure Patient Disposition: Home Clinical Impression: Urinary tract infection Instructions: DI for Urinary Tract Infection (UTI) Activity Restrictions/Additional Instructions: *You have been diagnosed with bladder infection *What to do: At this time we will call you in 2-3 days if we need to change her antibiotic or if her blood cultures are again positive. In the meantime please stay hydrated. Expect to have fever. Please follow-up with urology no the your referral has gone through *Continue to take medications as directed Cefdinir 300 mg twice a day for 10 days-->rite aid Tylenol Motrin as needed *Follow up with your primary care provider in 2-3 days or call [phone] *Return to ER if you should have increasing back pain stomach pain nausea vomiting or any new, worsening or concerning symptoms Prescriptions: New cefdinir 300 mg capsule 300 mg PO Q12H Qty: 20 0RF No Action spironolactone 100 mg Tablet 100 mg PO BID finasteride 5 mg Tablet 5 mg PO DAILY Referrals: Miscellaneous,[facility] [Primary Care Provider] - Stand Alone Forms: Patient Portal/API
[2024-03-17] MEDS: SODIUM CHLORIDE 0.9% 1,000 ML 2000 ML IV (18:40)
[2024-03-17 21:32] LABS: Urine N gonorrhoeae NOT DETECTED
[2024-03-17 21:35] LABS: Urine Chlamydia NOT DETECTED
--- NOTE | 2024-03-18 08:22 | PC.NURSE ---
Addendum entered by Scarlet Caba R.N. 03/18/24 08:29: Dr szymanski made aware. Awaiting sensitivity. No new orders at this time. Original Note: Spoke with Farzaneh Burns, reporting 3/4 blood culture bottles for gram+ cocci. two bottles from first set and aerobic bottle from 2nd set. made aware.
== END 2024-03-17 20:17 | disposition home or self-care (01) ==
PROVIDERS: Emergency Medicine; Emergency Provider Emergency Medicine
DX: N39.0 Urinary tract infection, site not specified (principal); R00.0 Tachycardia, unspecified; R50.9 Fever, unspecified
CPT/HCPCS: 36415; 71045; 80053; 81001; 81003; 83605; 83690; 84145; 84702; 85025; 85610; 85730; 87040; 87086; 87147; 87186; 87491; 87591; 93005; 93010; 96361; 96365; 96375; 99284; J0696; J1885; J2405